=== PATIENT | male | born 1970 | race Caucasian/White ===

== ENCOUNTER 2016-10-20 21:26 | Emergency (ER) | payer BC ==
[~2016-10-20] VITALS: Ht 177.8 cm; Wt 88.5 kg
[~2016-10-20 21:26] MED LIST: AMIT10TA PO; AMOX1TAB11 PO; ATOR40TA59 PO; CHOL2000 PO; CYCL10TA2 PO; HYDR-2762 PO; IBUP-1060 PO; LISI10TA2 PO; METO10TA81 PO; ONDA4TAB7 PO; OXYC10TA PO; PANT40TA5 PO; SUCR1TAB29 PO; SUMA25TA3 PO; TRYP500C PO; UBID1CAP23 PO
[2016-10-20] MEDS ORDERED: NITROGLYCERIN SUBLINGUAL 0.4 MG BOTTLE OF 25. SL PRN (21:45)
[2016-10-20 21:56] LABS: BASO # 0.1 x10^3/uL (0.0-0.2); BASO % 1 % (0-3); EOS % 2 % (0-3); HEMATOCRIT 47.7 % (39.0-53.0); HEMOGLOBIN 16.1 g/dL (13.0-17.5); LYMPH # 3.8 x10^3/uL (1.0-4.8); LYMPH % 40 % (24-48); MEAN CORPUSCULAR HEMOGLOBIN 31 pg (25-35); MEAN CORPUSCULAR HGB CONC 34 g/dL (31-37); MEAN CORPUSCULAR VOLUME 92 fL (79-100); MONO % 9 % (0-9); NEUT % 48 % (31-73); PLATELET COUNT 355 x10^3/uL (140-400); RED BLOOD COUNT 5.18 x10^6/uL (4.30-5.70); RED CELL DISTRIBUTION WIDTH 13.6 % (11.5-14.5); WHITE BLOOD COUNT 9.5 x10^3/uL (4.0-11.0)
[2016-10-20] MEDS ORDERED: ASPIRIN 81 MG TAB.CHEW PO ONE (22:00)
[2016-10-20 22:07] LABS: CALCIUM 9.4 mg/dL (8.5-10.1); CREATININE 0.8 mg/dL (0.7-1.3); GFR 103.2; POTASSIUM 4.2 mmol/L (3.5-5.1)
[2016-10-20 22:15] LABS: ALBUMIN 3.6 g/dL (3.4-5.0); DIRECT BILIRUBIN 0.1 mg/dL (0.0-0.2); TOTAL BILIRUBIN 0.3 mg/dL (0.2-1.0); TOTAL PROTEIN 7.7 g/dL (6.4-8.2)
[2016-10-20] MEDS: MORPHINE SULFATE 2 MG/ML DISP.SYRIN. IV PRN (22:15)
[2016-10-21 01:31] VITALS: BP 125/78
[2016-10-21] MEDS: MORPHINE SULFATE 2 MG/ML DISP.SYRIN. IV PRN (01:42)
[2016-10-21] MEDS ORDERED: ASPI81TA2 PO (02:01)
--- NOTE | 2016-10-21 02:02 | PHYS DOC ---
Past Medical History Past Medical History: Other Additional Past Medical Histor: chronic headaches; cyclic vomiting syndrome Past Surgical History: Other Additional Past Surgical Histo: colostomy and colostomy reversal Alcohol Use: Rarely Drug Use: Marijuana, Opiates Adult General Chief Complaint Chief Complaint: CHEST WALL PAIN HPI HPI 46-year-old male presenting to the emergency department today with chest pain that he describes as sharp stabbing on the right side radiates to the right shoulder. Worse with deep inspiration. He denies hemoptysis unilateral leg swelling family or personal history of blood clotting disorders. He does report using a alicia the day prior that was significantly vibrating his upper extremity and thinks this may have been the culprit to his symptoms. He currently takes a statin for hyperlipidemia and a low-dose blood pressure medication. History of smoking present. Review of systems is negative for abdominal pain nausea vomiting diaphoresis. All other review of systems is negative unless otherwise noted in history of present illness. Review of Systems Review of Systems SEE ABOVE. Current Medications Current Medications Current Medications Medications (Trade) Dose Ordered Sig/Alejandra Start Time Stop Time Status Last Admin Dose Admin Aspirin (Children'S Aspirin) 324 mg 1X ONCE 10/20/16 22:00 10/20/16 22:01 DC 10/20/16 22:14 324 MG Morphine Sulfate 2 mg PRN Q1HR PRN 10/20/16 21:45 10/21/16 02:16 DC 10/21/16 01:42 2 MG Nitroglycerin (Nitrostat) 0.4 mg PRN Q5MIN PRN 10/20/16 21:45 10/21/16 02:16 DC 10/20/16 22:14 0.4 MG Allergies Allergies Allergies Coded Allergies Type Severity Reaction Last Updated Verified aspirin Allergy Mild irritates stomach 12/26/15 Yes Physical Exam Physical Exam Constitutional: Well developed, well nourished, no acute distress, non-toxic appearance. HENT: Normocephalic, atraumatic, bilateral external ears normal, oropharynx moist, no oral exudates, nose normal. [] Eyes: PERRLA, EOMI, conjunctiva normal, no discharge. Neck: Normal range of motion, no tenderness, supple, no stridor. [] Cardiovascular:Heart rate regular rhythm, no murmur Lungs & Thorax: Bilateral breath sounds clear to auscultation [] Abdomen: Bowel sounds normal, soft, no tenderness, no masses, no pulsatile masses. Skin: Warm, dry, no erythema, no rash. [] Back: No tenderness, no CVA tenderness. Extremities: No tenderness, no cyanosis, no clubbing, ROM intact, no edema. [] Neurologic: Alert and oriented X 3, normal motor function, normal sensory function, no focal deficits noted. Psychologic: Affect normal, judgement normal, mood normal. [] Current Patient Data Vital Signs Vital Signs Date Time Temp Pulse Resp B/P Pulse Ox O2 Delivery O2 Flow Rate FiO2 10/21/16 01:42 16 Room Air 10/21/16 01:31 88 125/78 94 10/20/16 21:38 98.5 98.5 Lab Values Laboratory Tests Test 10/20/16 21:45 White Blood Count 9.5x10^3/uL (4.0-11.0) Red Blood Count 5.18x10^6/uL (4.30-5.70) Hemoglobin 16.1g/dL (13.0-17.5) Hematocrit 47.7% (39.0-53.0) Mean Corpuscular Volume 92fL (79-100) Mean Corpuscular Hemoglobin 31pg (25-35) Mean Corpuscular Hemoglobin Concent 34g/dL (31-37) Red Cell Distribution Width 13.6% (11.5-14.5) Platelet Count 355x10^3/uL (140-400) Neutrophils (%) (Auto) 48% (31-73) Lymphocytes (%) (Auto) 40% (24-48) Monocytes (%) (Auto) 9% (0-9) Eosinophils (%) (Auto) 2% (0-3) Basophils (%) (Auto) 1% (0-3) Neutrophils # (Auto) 4.6x10^3uL (1.8-7.7) Lymphocytes # (Auto) 3.8x10^3/uL (1.0-4.8) Monocytes # (Auto) 0.9x10^3/uL (0.0-1.1) Eosinophils # (Auto) 0.1x10^3/uL (0.0-0.7) Basophils # (Auto) 0.1x10^3/uL (0.0-0.2) Sodium Level 142mmol/L (136-145) Potassium Level 4.2mmol/L (3.5-5.1) Chloride Level 105mmol/L (98-107) Carbon Dioxide Level 27mmol/L (21-32) Anion Gap 10 (6-14) Blood Urea Nitrogen 20mg/dL (8-26) Creatinine 0.8mg/dL (0.7-1.3) Estimated GFR (Cockcroft-Gault) 103.2 Glucose Level 113mg/dL (70-99) H Calcium Level 9.4mg/dL (8.5-10.1) Total Bilirubin 0.3mg/dL (0.2-1.0) Direct Bilirubin 0.1mg/dL (0.0-0.2) Aspartate Amino Transferase (AST) 32U/L (15-37) Alanine Aminotransferase (ALT) 47U/L (16-63) Alkaline Phosphatase 82U/L (46-116) Troponin I Quantitative < 0.017ng/mL (0.000-0.055) EO-Eam-O-Type Natriuretic Peptide 10pg/mL (0-124) Total Protein 7.7g/dL (6.4-8.2) Albumin 3.6g/dL (3.4-5.0) Lipase 128U/L (73-393) Laboratory Tests 10/20/16 21:45 Laboratory Tests 10/20/16 21:45 EKG EKG [] EKG shows sinus tachycardia. Otherwise axis and intervals are within normal limits. ST segments congruent. Not suggestive of ischemia Radiology/Procedures Radiology/Procedures []Chest x-ray reviewed by myself shows no obvious infiltrate or pneumothorax present. No obvious acute cardiopulmonary process present. Course & Med Decision Making Course & Med Decision Making Pertinent Labs and Imaging studies reviewed. (See chart for details) [] 38-year-old gentleman presenting the emergency department today with chest pain. Vital signs showed mild tachycardia otherwise unremarkable. Physical exam unremarkable. EKG unremarkable. Chest x-ray unremarkable. Blood work obtained which was unremarkable including a negative troponin. Repeat istat troponin taken at 1:30 AM which was negative. Heart score of 3 for >3 risk factors. Dragon Disclaimer Dragon Disclaimer This electronic medical record was generated, in whole or in part, using a voice recognition dictation system. Departure Departure Impression: Primary Impression: Chest pain Disposition: 01 HOME, SELF-CARE Condition: STABLE Referrals: Caity NOE MD (PCP) Patient Instructions: Chest Pain (Nonspecific) Additional Instructions: Thank you for allowing us to participate in your care today. Followup with your primary care physician in 3 days if your symptoms do not improve. If you do not have a primary care provider you can ask for a list of our primary care providers. Return to the emergency department you have any new or concerning findings. This should be evaluated by the primary care physician and any necessary consulting services for continued management within a few days after discharge. Return to emergency room if you have any new or concerning symptoms including but not limited to fever, chills, nausea, vomiting, intractable pain, any new rashes, chest pain, shortness of air, uncontrolled bleeding, difficulty breathing, and/or vision loss. You may have been prescribed medication that can change in your level of thinking and ability to operate machinery. These medications include hydrocodone and Ativan. Also, Benadryl has been known to do this as well. Be sure to check with your pharmacist and ask if the medications you've prescribed can affect your level of consciousness. I recommend not operating heavy machinery or driving while on medication such as these. Scripts Aspirin 81 Mg Tab.chew1 Tab PO DAILY #14 TAB Ref 3 Prov:MERCEDEZ TORRES MD 10/21/16 MERCEDEZ TORRES MD Oct 21, 2016 02:02
--- NOTE | 2016-10-21 02:15 | RAD ---
INDICATION: Chest pain. COMPARISON: 07/07/2016 FINDINGS: 1 view of chest obtained. Minimal haziness right lung base Mediastinal contour unremarkable. No gross osseous destructive lesion. IMPRESSION: Minimal haziness right lung base. Could be overlap of structures but a small focus of atelectasis or infiltrate is not excluded. Electronically signed by: Kris Anthony (Oct 21, 2016 02:14:28)
--- NOTE | 2016-10-21 09:22 | EKG ---
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
== END 2016-10-21 02:11 | disposition home or self-care (01) ==
LOC: ER 21:26
DX: R07.89 Other chest pain (principal); R00.0 Tachycardia, unspecified; E78.5 Hyperlipidemia, unspecified; G43.A0 Cyclical vomiting, in migraine, not intractable; G89.29 Other chronic pain; F12.10 Cannabis abuse, uncomplicated; F11.10 Opioid abuse, uncomplicated; Z88.6 Allergy status to analgesic agent; Z87.891 Personal history of nicotine dependence
CPT/HCPCS: 36415; 71010; 80048; 80076; 83690; 83880; 84484; 85027; 93005; 96374; 96376; 99285; J2270

== ENCOUNTER 2016-12-02 14:59 | Emergency (ER) | payer BC ==
[~2016-12-02] VITALS: Ht 175.3 cm; Wt 90.7 kg
[~2016-12-02 14:59] MED LIST changes: +ASPI81TA2 PO
--- NOTE | 2016-12-02 15:33 | PHYS DOC ---
Past Medical History Past Medical History: Diverticulitis, Other Additional Past Medical Histor: chronic headaches; cyclic vomiting syndrome Past Surgical History: Other Additional Past Surgical Histo: colostomy and colostomy reversal Additional Information: 11/02 ppd Alcohol Use: None Drug Use: Marijuana, Opiates Adult General Chief Complaint Chief Complaint: SORE THROAT HPI HPI Patient is a 46 year old male presents emergency department stating that he's had a headache right ear pain sore throat and chest congestion 2 days. Patient states that he's been taken NyQuil [id number] without much relief. He denies any fever, chills or any nausea vomiting. He does however state that he' s had some cough and congestion in which she feels as though he is short of air. He has used to inhalers at home of his 's which seemed to have helped for a brief moment. Review of Systems Review of Systems Constitutional: Denies fever or chills [] Eyes: Denies change in visual acuity, redness, or eye pain [] HENT: nasal congestion and sore throat [] Respiratory: cough occasional shortness of breath [] Cardiovascular: No additional information not addressed in HPI [] GI: Denies abdominal pain, nausea, vomiting, bloody stools or diarrhea [] : Denies dysuria or hematuria [] Musculoskeletal: Denies back pain or joint pain [] Integument: Denies rash or skin lesions [] Neurologic: Denies headache, focal weakness or sensory changes [] Current Medications Current Medications Current Medications Medications (Trade) Dose Ordered Sig/[facility] Start Time Stop Time Status Last Admin Dose Admin Albuterol/ Ipratropium (Duoneb) 3 ml 1X ONCE 12/02/16 15:45 12/02/16 15:46 DC 12/02/16 15:54 3 ML Ketorolac Tromethamine (Toradol Im) 60 mg 1X ONCE 12/02/16 16:15 12/02/16 16:16 DC 12/02/16 16:16 60 MG Allergies Allergies Allergies Coded Allergies Type Severity Reaction Last Updated Verified aspirin Allergy Mild irritates stomach 12/26/15 Yes Physical Exam Physical Exam Constitutional: Well developed, well nourished, no acute distress, non-toxic appearance. [] HENT: Normocephalic, atraumatic, bilateral external ears normal, oropharynx moist, no oral exudates, nose normal. Bilateral tympanic membranes appear to be normal. Throat with erythematous and postnasal drip noted. Patient with left cervical anterior adenopathy noted. Eyes: PERRLA, EOMI, conjunctiva normal, no discharge. [] Neck: Normal range of motion, no tenderness, supple, no stridor. [] Cardiovascular:Heart rate regular rhythm, no murmur [] Lungs & Thorax: Bilateral breath sounds clear to auscultation [] Skin: Warm, dry, no erythema, no rash. [] Back: No tenderness Extremities: No tenderness, no cyanosis, no clubbing, ROM intact, no edema. [] Neurologic: Alert and oriented X 3, normal motor function, normal sensory function, no focal deficits noted. [] Psychologic: Affect normal, judgement normal, mood normal. [] Current Patient Data Vital Signs Vital Signs Date Time Temp Pulse Resp B/P Pulse Ox O2 Delivery O2 Flow Rate FiO2 12/02/16 15:54 Room Air 12/02/16 15:11 100.0 109 20 135/106 97 100.0 Lab Values Laboratory Tests Test 12/02/16 15:52 Influenza Type A Antigen Negative (NEGATIVE) Influenza Type B Antigen Negative (NEGATIVE) EKG EKG [] Radiology/Procedures Radiology/Procedures [] Course & Med Decision Making Course & Med Decision Making Pertinent Labs and Imaging studies reviewed. (See chart for details) Rapid strep negative, influenza A and B. Patient will be placed on Augmentin for upper respiratory infection/sinusitis. Patient will be provided with a inhaler pro-air for bronchitis. Patient still states he is having pain in the Toradol did not help with his relief. He'll be provided with oxycodone wants his ride arrives here in the emergency department. Patient provided with discharge instructions treatment regimens and follow-up recommendations. Signs symptoms to return back to emergency department as been provided. [] Dragon Disclaimer Dragon Disclaimer This electronic medical record was generated, in whole or in part, using a voice recognition dictation system. Departure Departure Impression: Primary Impression: Sinusitis Additional Impression: Bronchitis Disposition: 01 HOME, SELF-CARE Condition: STABLE Referrals: YASMEEN NOE MD (PCP) Patient Instructions: Acute Bronchitis, [id number], Sinusitis, [id number] Additional Instructions: Home to rest Medication as prescribed Germainicidin HBP yasemin also help with nasal congestion Warm salt water gargles may help sooth the throat Cough drops, throat lozenger, cepacol throat spray may also help with throat discomfort Drink plenty of fluids. Followup with primary care provider in 3-5 days Return to emergency department as needed for signs and symptoms that become worse. Scripts Albuterol Sulfate (Proair Hfa Inhaler)8.5 Gm Hfa.aer.ad1 Puff INH PRN Q6HRS PRN SHORTNESS OF BREATH #1 INHALER Prov:SULY DAWN APRN 12/02/16 Amoxicillin/Potassium Clav (Augmentin 875-125 Tablet)1 Each Tablet1 Tab PO BID # 20 TAB Prov:SULY DAWN APRN 12/02/16 Problem Qualifiers SULY DAWN APRN Dec 02, 2016 15:32
[2016-12-02] MEDS ORDERED: IPRATRPIUM/ALBUTEROL 0.5/2.5MG 3 ML NEBU. NEB ONE (15:45)
[2016-12-02] MEDS ORDERED: KETOROLAC TROMETHAMINE 60 MG/2 ML INJ. IM ONE (16:15)
[2016-12-02 16:18] LABS: OBC FLU VALID
[2016-12-02] MEDS ORDERED: AMOX1TAB61 PO (16:50)
[2016-12-02] MEDS ORDERED: PROAIR HFA8.5 GM INH (16:50)
[2016-12-02 17:16] VITALS: BP 146/83
[2016-12-02] MEDS ORDERED: OXYCODONE/APAP 5/325 TABLET. PO ONE (17:30)
[2016-12-03 07:38] LABS: NEGATIVE OBC STREP NEG; POSITIVE OBC STREP POS
== END 2016-12-02 17:17 | disposition home or self-care (01) ==
LOC: ER 14:59
DX: J32.9 Chronic sinusitis, unspecified (principal); J40 Bronchitis, not specified as acute or chronic; F12.10 Cannabis abuse, uncomplicated; F11.10 Opioid abuse, uncomplicated; F17.200 Nicotine dependence, unspecified, uncomplicated; Z88.6 Allergy status to analgesic agent
CPT/HCPCS: 87070; 87804; 87880; 94640; 99284; J1885; J7620

== ENCOUNTER → 2017-01-16 | Outpatient (CLI) | payer BC ==
[~2017-01-16] MED LIST changes: +AMOX1TAB61 PO; +PROAIR HFA8.5 GM INH
--- NOTE | 2017-01-16 15:48 | KCIC ---
PROCEDURE Three-view left knee radiographs 01/16/2017 HISTORY Left knee pain with remote injury. FINDINGS AP, lateral and oblique digital radiographs of the left knee were obtained. No fracture or dislocation of the left knee is seen. Very mild degenerative changes are seen involving the medial compartment of the left knee. There is suggestion of chondrocalcinosis involving medial and lateral compartment. There is no radiographic evidence of a joint effusion. IMPRESSION Very mild degenerative changes are seen involving the medial compartment of the left knee. No acute osseous abnormality is seen. Electronically signed by: Carlos A De La Vega MD (January 16, 2017 15:47:02)
== END | disposition home or self-care (01) ==
LOC: KCIC 14:24
PROVIDERS: ATTEND Family Medicine
DX: M25.562 Pain in left knee (principal)
CPT/HCPCS: 73562

== ENCOUNTER 2017-04-08 00:54 | Emergency (ER) | payer BC ==
[~2017-04-08] VITALS: Ht 172.7 cm; Wt 86.2 kg
[~2017-04-08 00:54] MED LIST changes: +ASPI-630 PO; -ASPI81TA2 PO; -SUCR1TAB29 PO; +SUCR1TAB35 PO; -UBID1CAP23 PO; +UBID1CAP41 PO
[2017-04-08] MEDS ORDERED: EYE-STREAM OPHTH SOLUTION 120 ML BOTTLE. ONE (02:10)
[2017-04-08] MEDS ORDERED: TETRACAINE 0.5% OPHTH SOLUTION 4ML BOTTLE. ONE (02:10)
[2017-04-08] MEDS ORDERED: FLUORESCEIN OPHTH TEST STRIP. ONE (02:10)
[2017-04-08 02:12] VITALS: BP 125/90
[2017-04-08] MEDS ORDERED: TETRACAINE 0.5% OPHTH SOLUTION 4ML BOTTLE. OS ONE (02:30)
[2017-04-08] MEDS ORDERED: oxyCODONE/APAP 7.5/325 1 TAB TABLET PO ONE (02:30)
[2017-04-08] MEDS ORDERED: FLUORESCEIN OPHTH TEST STRIP. OS ONE (02:30)
[2017-04-08] MEDS ORDERED: ERYT1OIN6 OP (02:54)
[2017-04-08] MEDS ORDERED: ERYTHROMYCIN 0.5% OPHTH OINTMENT 1GM TUBE. OS ONE (03:00)
--- NOTE | 2017-04-08 07:42 | ED.ADGEN ---
Past Medical History Past Medical History: Diverticulitis, Other Additional Past Medical Histor: chronic headaches; cyclic vomiting syndrome Past Surgical History: Other Additional Past Surgical Histo: colostomy and colostomy reversal Alcohol Use: None Drug Use: Marijuana, Opiates Adult General Chief Complaint Chief Complaint: FOREIGN BODY/EYES HPI HPI Patient is a 47 year old man, who presents to the emergency department with complaint of left eye pain for the past several hours. Patient states that he was using a metal grinder, did have safety glasses on, but a piece of metal or patent flu up and struck him in the left eye. He states that he could feel a foreign body sensation under his upper eyelid, and has persistent pain in the left eye along with a headache. He does use opiates for chronic pain at home, states he did take his pain medication without relief at home. No vision changes, no fevers or chills, no nausea or vomiting, no other injuries reported. Patient and his did irrigate the eye copiously using saline and Visine drops prior to coming to the ED. Patient uses reading glasses, does not use contacts. Tetanus is up-to-date. Review of Systems Review of Systems Constitutional: Denies fever or chills. [] Eyes: Left eye pain and foreign body sensation. Denies change in visual acuity. [] HENT: Denies nasal congestion or sore throat. [] Respiratory: Denies cough or shortness of breath. [] Cardiovascular: Denies chest pain or edema. [] GI: Denies abdominal pain, nausea, vomiting, bloody stools or diarrhea. [] : Denies dysuria. [] Musculoskeletal: Denies back pain or joint pain. [] Integument: Denies rash. [] Neurologic: Denies headache, focal weakness or sensory changes. [] Endocrine: Denies polyuria or polydipsia. [] Lymphatic: Denies swollen glands. [] Psychiatric: Denies depression or anxiety. [] Current Medications Current Medications Current Medications Medications (Trade) Dose Ordered Sig/Alejandra Start Time Stop Time Status Last Admin Dose Admin Balanced Salt Solution (Eye-Stream) 120 ml STK-MED ONCE 04/08/17 02:10 04/08/17 02:11 DC Erythromycin (Romycin) 0.25 inch 1X ONCE 04/08/17 03:00 04/08/17 03:01 DC 04/08/17 02:55 0.25 INCH Fluorescein Sodium (Ful-Dianna) 1 strip 1X ONCE 04/08/17 02:30 04/08/17 02:31 DC 04/08/17 02:36 1 STRIP Oxycodone/ Acetaminophen (Percocet 7.5/ 325) 1 tab 1X ONCE 04/08/17 02:30 04/08/17 02:31 DC 04/08/17 02:35 1 TAB Tetracaine HCl (Tetracaine) 1 drop 1X ONCE 04/08/17 02:30 04/08/17 02:31 DC 04/08/17 02:36 1 DROP Allergies Allergies Allergies Coded Allergies Type Severity Reaction Last Updated Verified aspirin Allergy Mild irritates stomach 12/26/15 Yes Physical Exam Physical Exam Constitutional: Well developed, well nourished, no acute distress, non-toxic appearance. [] HENT: Normocephalic, atraumatic, bilateral external ears normal, oropharynx moist, no oral exudates, nose normal. [] Eyes: PERRLA, EOMI, conjunctiva are mildly injected, pleurisy and examination performed, patient noted to have a small corneal abrasion in the 12 o'clock position, no foreign bodies identified, patient also noted to have some irritation of the inner aspect of the upper eyelid, no discharge. [] Skin: Warm, dry, no erythema, no rash. [] Back: No tenderness, no CVA tenderness. [] Extremities: No tenderness, no cyanosis, no clubbing, ROM intact, no edema. [] Neurologic: Alert and oriented X 3, normal motor function, normal sensory function, no focal deficits noted. [] Psychologic: Affect normal, judgement normal, mood normal. [] Current Patient Data Vital Signs Vital Signs Date Time Temp Pulse Resp B/P (MAP) Pulse Ox O2 Delivery O2 Flow Rate FiO2 04/08/17 02:35 99 Room Air 04/08/17 02:12 97.8 91 20 125/90 (102) 97.8 EKG EKG Not indicated. [] Radiology/Procedures Radiology/Procedures Not indicated. [] Course & Med Decision Making Course & Med Decision Making Pertinent Labs and Imaging studies reviewed. (See chart for details) Patient with significant improvement of discomfort after application of tetracaine in the ED, fluorescein reveals small amount of uptake at at the 12 o' clock position, and irritation of the inner eyelid, but no retained foreign body identified. Discussion at bedside regarding importance of follow-up with his eye doctor in the next 24-48 hours, which patient states he'll be able able to establish without issue, patient was instructed on use of tetracaine drops, and also of erythromycin ointment, medication precautions and instructions and importance of proper use discussed in detail with patient, regarding potential side effects and risks of misuse of tetracaine. Patient voices understanding and agreement, given clear and detailed follow-up and return instructions, discharged home in stable condition, comfortable, with drops and instructions as stated, azithromycin applied in the ED without issue, given contact information for Dr. Serrato of ophthalmology in case he is unable to follow- up with his own eye doctor. Robert Disclaimer Dragon Disclaimer This electronic medical record was generated, in whole or in part, using a voice recognition dictation system. Departure Impression: Primary Impression: Corneal abrasion Additional Impression: Eye pain Disposition: 01 HOME, SELF-CARE Condition: IMPROVED Scripts Erythromycin Base (Erythromycin) 1 Gm Oint...g. 0.25 INCH OP QID, #1 TUBE Prov: MELINDA MELCHOR DO 04/08/17 Problem Qualifiers MELINDA MELCHOR DO Apr 08, 2017 07:41
== END 2017-04-08 03:02 | disposition home or self-care (01) ==
LOC: ER 00:54
DX: S05.02XA Injury of conjunctiva and corneal abrasion without foreign body, left eye, initial encounter (principal); F12.10 Cannabis abuse, uncomplicated; F11.10 Opioid abuse, uncomplicated; G89.29 Other chronic pain; Z88.6 Allergy status to analgesic agent; W22.8XXA Striking against or struck by other objects, initial encounter; Y93.89 Activity, other specified; Y99.8 Other external cause status; Y92.89 Other specified places as the place of occurrence of the external cause
CPT/HCPCS: 99283

== ENCOUNTER 2017-05-19 02:41 | Inpatient (IN) | payer BC ==
[~2017-05-19] VITALS: Ht 175.3 cm; Wt 84.2 kg
[~2017-05-19 02:41] MED LIST changes: +ERYT1OIN6 OP
[2017-05-19] MEDS ORDERED: ONDANSETRON PF 4 MG/2 ML VIAL. IV ONE (03:00)
[2017-05-19] MEDS ORDERED: IV NORMAL SALINE 1000ML BAG 1,000 ML IV ONE (03:00)
[2017-05-19 03:03] LABS: BASO # 0.1 x10^3/uL (0.0-0.2); BASO % 1 % (0-3); EOS % 0 % (0-3); HEMATOCRIT 46.6 % (39.0-53.0); HEMOGLOBIN 15.8 g/dL (13.0-17.5); LYMPH # 2.7 x10^3/uL (1.0-4.8); LYMPH % 18 % (24-48); MEAN CORPUSCULAR HEMOGLOBIN 31 pg (25-35); MEAN CORPUSCULAR HGB CONC 34 g/dL (31-37); MEAN CORPUSCULAR VOLUME 92 fL (79-100); MONO % 4 % (0-9); NEUT % 77 % (31-73); PLATELET COUNT 362 x10^3/uL (140-400); RED BLOOD COUNT 5.09 x10^6/uL (4.30-5.70); RED CELL DISTRIBUTION WIDTH 14.1 % (11.5-14.5); WHITE BLOOD COUNT 14.7 x10^3/uL (4.0-11.0)
[2017-05-19 03:11] LABS: GFR 79.4; POTASSIUM 3.8 mmol/L (3.5-5.1)
[2017-05-19 03:17] LABS: ALBUMIN 4.1 g/dL (3.4-5.0); TOTAL BILIRUBIN 0.4 mg/dL (0.2-1.0); TOTAL PROTEIN 8.3 g/dL (6.4-8.2)
[2017-05-19] MEDS ORDERED: HYDROmorphone 2 MG/ML VIAL IV ONE (04:00)
[2017-05-19] MEDS ORDERED: diphenhydrAMINE 50 MG/ML VIAL IVP ONE (04:00)
[2017-05-19] MEDS ORDERED: METOCLOPRAMIDE HCL 10 MG/2 ML VIAL. IV ONE (04:00)
--- NOTE | 2017-05-19 04:13 | PHYS DOC ---
Past Medical History Past Medical History: Diverticulitis, Other Additional Past Medical Histor: chronic headaches; cyclic vomiting syndrome Past Surgical History: Other Additional Past Surgical Histo: colostomy and colostomy reversal Smoking: Cigarettes Alcohol Use: None Drug Use: Marijuana, Opiates Social History Narrative: Adult General Chief Complaint Chief Complaint: NAUSEA/VOMITING/DIARRHA HPI HPI Patient is a 47 year old male who presents with vomiting. He has chronic cyclic vomiting syndrome and presents with complaint of intractable vomiting. He states "just call Dr Mathieu Noe and he will admit me." He has chronic headaches (MRI Brain neg 08/[address] head neg 08/2014) with a headache for days. He has no diarrhea; some abdominal pain but very vague. No fever, no cough , no travel. No one else sick at home. Ate at [employer]. This episode of vomiting started at 2200 PM. He was on antibiotic eye drops couple weeks ago; no oral antibiotics. PCP: Dr Mathieu Noe Review of Systems Review of Systems Constitutional: Denies fever or chills Eyes: Denies change in visual acuity, redness, or eye pain; recent eye infection -cleared HENT: Denies nasal congestion or sore throat Respiratory: Denies cough or shortness of breath Cardiovascular: No chest pain GI: POS abdominal pain, nausea, vomiting, NO bloody stools or diarrhea : Denies dysuria or hematuria Musculoskeletal: Denies back pain or joint pain Integument: Denies rash or skin lesions Neurologic: Daily headaches, NO focal weakness or sensory changes Current Medications Current Medications Current Medications Medications (Trade) Dose Ordered Sig/Alejandra Start Time Stop Time Status Last Admin Dose Admin Diphenhydramine HCl (Benadryl) 25 mg 1X ONCE 05/19/17 04:00 05/19/17 04:01 DC Hydromorphone HCl (Dilaudid) 1 mg 1X ONCE 05/19/17 04:00 05/19/17 04:01 DC Metoclopramide HCl (Reglan) 10 mg 1X ONCE 05/19/17 04:00 05/19/17 04:01 DC Ondansetron HCl (Zofran) 4 mg 1X ONCE 05/19/17 03:00 05/19/17 03:01 DC 05/19/17 03:00 4 MG Sodium Chloride 1,000 ml @ 1,000 mls/hr 1X ONCE 05/19/17 03:00 05/19/17 03:59 DC 05/19/17 03:00 1,000 MLS/HR Allergies Allergies Allergies Coded Allergies Type Severity Reaction Last Updated Verified aspirin Allergy Mild irritates stomach 12/26/15 Yes Physical Exam Physical Exam Constitutional: Well developed, well nourished, no acute distress, non-toxic appearance. HENT: Normocephalic, atraumatic, bilateral external ears normal, oropharynx moist, no oral exudates, nose normal. Eyes: PERRLA, EOMI, conjunctiva normal, no discharge. Neck: Normal range of motion, no tenderness, supple, no stridor. Cardiovascular:Heart rate regular rhythm, no murmur Lungs & Thorax: Bilateral breath sounds clear to auscultation Abdomen: Bowel sounds normal, soft, no tenderness on palpation; no rebound or guarding, no masses, no pulsatile masses. Skin: Warm, dry, no erythema, no rash. Back: No tenderness, no CVA tenderness. Extremities: No tenderness, no cyanosis, no clubbing, ROM intact, no edema. Neurologic: Alert and oriented X 3, normal motor function, normal sensory function, no focal deficits noted. Current Patient Data Vital Signs Vital Signs Date Time Temp Pulse Resp B/P (MAP) Pulse Ox O2 Delivery O2 Flow Rate FiO2 05/19/17 02:45 97.6 62 26 144/91 (108) 97 Room Air 97.6 Lab Values Laboratory Tests Test 05/19/17 02:55 White Blood Count 14.7 x10^3/uL (4.0-11.0) H Red Blood Count 5.09 x10^6/uL (4.30-5.70) Hemoglobin 15.8 g/dL (13.0-17.5) Hematocrit 46.6 % (39.0-53.0) Mean Corpuscular Volume 92 fL (79-100) Mean Corpuscular Hemoglobin 31 pg (25-35) Mean Corpuscular Hemoglobin Concent 34 g/dL (31-37) Red Cell Distribution Width 14.1 % (11.5-14.5) Platelet Count 362 x10^3/uL (140-400) Neutrophils (%) (Auto) 77 % (31-73) H Lymphocytes (%) (Auto) 18 % (24-48) L Monocytes (%) (Auto) 4 % (0-9) Eosinophils (%) (Auto) 0 % (0-3) Basophils (%) (Auto) 1 % (0-3) Neutrophils # (Auto) 11.3 x10^3uL (1.8-7.7) H Lymphocytes # (Auto) 2.7 x10^3/uL (1.0-4.8) Monocytes # (Auto) 0.6 x10^3/uL (0.0-1.1) Eosinophils # (Auto) 0.0 x10^3/uL (0.0-0.7) Basophils # (Auto) 0.1 x10^3/uL (0.0-0.2) Sodium Level 140 mmol/L (136-145) Potassium Level 3.8 mmol/L (3.5-5.1) Chloride Level 102 mmol/L (98-107) Carbon Dioxide Level 27 mmol/L (21-32) Anion Gap 11 (6-14) Blood Urea Nitrogen 24 mg/dL (8-26) Creatinine 1.0 mg/dL (0.7-1.3) Estimated GFR (Cockcroft-Gault) 79.4 BUN/Creatinine Ratio 24 (6-20) H Glucose Level 142 mg/dL (70-99) H Calcium Level 10.0 mg/dL (8.5-10.1) Total Bilirubin 0.4 mg/dL (0.2-1.0) Aspartate Amino Transferase (AST) 22 U/L (15-37) Alanine Aminotransferase (ALT) 32 U/L (16-63) Alkaline Phosphatase 85 U/L (46-116) Total Protein 8.3 g/dL (6.4-8.2) H Albumin 4.1 g/dL (3.4-5.0) Albumin/Globulin Ratio 1.0 (1.0-1.7) Laboratory Tests 05/19/17 02:55 Laboratory Tests 05/19/17 02:55 Course & Med Decision Making Course & Med Decision Making Evaluated patient. His abdominal exam is benign and no evidence of acute surgical abdomen. He states he has had this many times in the past. His BUN is elevated. IV NS fluids, IV reglan, zofran, benadryl and dilaudid. He has improved. Spoke with Dr Gutierrez (supervisor telephone information) and accepts admission for Dr Noe. I have spoken with the patient and/or caregivers. I have explained the patient' s condition, diagnosis and treatment plan based on the information available to me at this time. I have answered the patient's and/or caregiver's questions and addressed any concerns. The patient and/or caregivers have as good an understanding of the patient's diagnosis, condition and treatment plan as can be expected at this point. The patient has been stabilized within the capability of the emergency department. The patient will be transported for further care and management or will be moved to an observation or inpatient service. I have communicated with the staff or medical practitioner taking over this patient's care. Dragon Disclaimer Dragon Disclaimer This electronic medical record was generated, in whole or in part, using a voice recognition dictation system. Departure Departure Impression: Primary Impression: Dehydration Additional Impressions: Intractable vomiting Cyclical vomiting Disposition: ADMITTED INPATIENT Admitting Physician: Adilson Noe Condition: STABLE Referrals: Caity NOE MD (PCP) Problem Qualifiers Additional Impressions: Intractable vomiting Vomiting type: cyclical vomiting Nausea presence: with nausea Qualified Codes: G43.A1 - Cyclical vomiting, intractable Cyclical vomiting Vomiting Intractability: intractable Nausea presence: with nausea Qualified Codes: G43.A1 - Cyclical vomiting, intractable RANDY SHEPPARD MD May 19, 2017 04:13
[2017-05-19] MEDS ORDERED: MORPHINE SULFATE 2 MG/ML DISP.SYRIN. IV PRN (04:15)
[2017-05-19 05:18] VITALS: BP 130/56
[2017-05-19] MEDS: diphenhydrAMINE 50 MG/ML VIAL IVP PRN ×2 (05:32→11:45)
[2017-05-19 07:00] VITALS: BP 126/93
[2017-05-19] MEDS: METOCLOPRAMIDE HCL 10 MG/2 ML VIAL. IV PRN ×2 (08:43→15:19)
[2017-05-19] MEDS ORDERED: NON FORMULARY ITEM (Albuterol Sulfate (Proair Hfa Inhaler) 1 PUFF) INH PRN (08:45)
[2017-05-19] MEDS ORDERED: OXYC10TA PO (08:46)
[2017-05-19] MEDS ORDERED: LINA145C PO (08:46)
--- NOTE | 2017-05-19 08:53 | PDOC ---
PROGRESS NOTES Subjective Subjective Patient c/o nausea and neck pain, requesting IV meds for this. Objective Objective Vital Signs Date Time Temp Pulse Resp B/P (MAP) Pulse Ox O2 Delivery O2 Flow Rate FiO2 05/19/17 08:44 99 Room Air 05/19/17 05:18 97.5 77 18 130/56 (80) 97.5 Physical Exam Abdomen: Normal bowel sounds, Soft, No tenderness Heart: Regular rate Extremities: No edema General: Alert, Oriented X3 (moderately uncomfortable with nausea at present, no emesis) Lungs: Clear to auscultation Assessment Assessment Problems Medical Problems: (1) Cyclical vomiting Status: Acute Plan Plan of Care 1. Cyclic vomiting - patient has long history of this. Mild dehydration present on admission lab. Will order Zofran and IVF, clears if desired. 2. degenerative disc disease and chronic headaches - appears stable, continue his usual po meds after nausea improves. Has IV Morphine available also. 3. HTN - continue Lisinopril. 4 tobaccoism - Nicotine patch while here. Comment Review of Relevant I have reviewed the following items magdalena (where applicable) has been applied. Labs Laboratory Tests Test 05/19/17 02:55 White Blood Count 14.7 x10^3/uL (4.0-11.0) Red Blood Count 5.09 x10^6/uL (4.30-5.70) Hemoglobin 15.8 g/dL (13.0-17.5) Hematocrit 46.6 % (39.0-53.0) Mean Corpuscular Volume 92 fL (79-100) Mean Corpuscular Hemoglobin 31 pg (25-35) Mean Corpuscular Hemoglobin Concent 34 g/dL (31-37) Red Cell Distribution Width 14.1 % (11.5-14.5) Platelet Count 362 x10^3/uL (140-400) Neutrophils (%) (Auto) 77 % (31-73) Lymphocytes (%) (Auto) 18 % (24-48) Monocytes (%) (Auto) 4 % (0-9) Eosinophils (%) (Auto) 0 % (0-3) Basophils (%) (Auto) 1 % (0-3) Neutrophils # (Auto) 11.3 x10^3uL (1.8-7.7) Lymphocytes # (Auto) 2.7 x10^3/uL (1.0-4.8) Monocytes # (Auto) 0.6 x10^3/uL (0.0-1.1) Eosinophils # (Auto) 0.0 x10^3/uL (0.0-0.7) Basophils # (Auto) 0.1 x10^3/uL (0.0-0.2) Sodium Level 140 mmol/L (136-145) Potassium Level 3.8 mmol/L (3.5-5.1) Chloride Level 102 mmol/L (98-107) Carbon Dioxide Level 27 mmol/L (21-32) Anion Gap 11 (6-14) Blood Urea Nitrogen 24 mg/dL (8-26) Creatinine 1.0 mg/dL (0.7-1.3) Estimated GFR (Cockcroft-Gault) 79.4 BUN/Creatinine Ratio 24 (6-20) Glucose Level 142 mg/dL (70-99) Calcium Level 10.0 mg/dL (8.5-10.1) Total Bilirubin 0.4 mg/dL (0.2-1.0) Aspartate Amino Transf (AST/SGOT) 22 U/L (15-37) Alanine Aminotransferase (ALT/SGPT) 32 U/L (16-63) Alkaline Phosphatase 85 U/L (46-116) Total Protein 8.3 g/dL (6.4-8.2) Albumin 4.1 g/dL (3.4-5.0) Albumin/Globulin Ratio 1.0 (1.0-1.7) Laboratory Tests Test 05/19/17 02:55 White Blood Count 14.7 x10^3/uL (4.0-11.0) Red Blood Count 5.09 x10^6/uL (4.30-5.70) Hemoglobin 15.8 g/dL (13.0-17.5) Hematocrit 46.6 % (39.0-53.0) Mean Corpuscular Volume 92 fL (79-100) Mean Corpuscular Hemoglobin 31 pg (25-35) Mean Corpuscular Hemoglobin Concent 34 g/dL (31-37) Red Cell Distribution Width 14.1 % (11.5-14.5) Platelet Count 362 x10^3/uL (140-400) Neutrophils (%) (Auto) 77 % (31-73) Lymphocytes (%) (Auto) 18 % (24-48) Monocytes (%) (Auto) 4 % (0-9) Eosinophils (%) (Auto) 0 % (0-3) Basophils (%) (Auto) 1 % (0-3) Neutrophils # (Auto) 11.3 x10^3uL (1.8-7.7) Lymphocytes # (Auto) 2.7 x10^3/uL (1.0-4.8) Monocytes # (Auto) 0.6 x10^3/uL (0.0-1.1) Eosinophils # (Auto) 0.0 x10^3/uL (0.0-0.7) Basophils # (Auto) 0.1 x10^3/uL (0.0-0.2) Sodium Level 140 mmol/L (136-145) Potassium Level 3.8 mmol/L (3.5-5.1) Chloride Level 102 mmol/L (98-107) Carbon Dioxide Level 27 mmol/L (21-32) Anion Gap 11 (6-14) Blood Urea Nitrogen 24 mg/dL (8-26) Creatinine 1.0 mg/dL (0.7-1.3) Estimated GFR (Cockcroft-Gault) 79.4 BUN/Creatinine Ratio 24 (6-20) Glucose Level 142 mg/dL (70-99) Calcium Level 10.0 mg/dL (8.5-10.1) Total Bilirubin 0.4 mg/dL (0.2-1.0) Aspartate Amino Transf (AST/SGOT) 22 U/L (15-37) Alanine Aminotransferase (ALT/SGPT) 32 U/L (16-63) Alkaline Phosphatase 85 U/L (46-116) Total Protein 8.3 g/dL (6.4-8.2) Albumin 4.1 g/dL (3.4-5.0) Albumin/Globulin Ratio 1.0 (1.0-1.7) Medications Current Medications Ondansetron HCl (Zofran) 4 mg 1X ONCE IV Last administered on 05/19/17 03:00 ; Start 05/19/17 at 03:00; Stop 05/19/17 at 03:01; Status DC Sodium Chloride 1,000 ml @ 1,000 mls/hr 1X ONCE IV Last administered on 03:00; Start 05/19/17 at 03:00; Stop 05/19/17 at 03:59; Status DC Hydromorphone HCl (Dilaudid) 1 mg 1X ONCE IV Last administered on 05/19/17 04 :25; Start 05/19/17 at 04:00; Stop 05/19/17 at 04:01; Status DC Metoclopramide HCl (Reglan) 10 mg 1X ONCE IV Last administered on 05/19/17 04 :25; Start 05/19/17 at 04:00; Stop 05/19/17 at 04:01; Status DC Diphenhydramine HCl (Benadryl) 25 mg 1X ONCE IVP Last administered on 04:25; Start 05/19/17 at 04:00; Stop 05/19/17 at 04:01; Status DC Morphine Sulfate 2 mg PRN Q2HR PRN IV SEVERE PAIN Last administered on 08:44; Start 05/19/17 at 04:15; Stop 05/20/17 at 04:14 Diphenhydramine HCl (Benadryl) 25 mg PRN Q4HRS PRN IVP NAUSEA Last administered on 05/19/17 05:32; Start 05/19/17 at 04:15 Metoclopramide HCl (Reglan) 10 mg PRN Q6HRS PRN IV NAUSEA Last administered on 05/19/17 08:43; Start 05/19/17 at 04:15 Ondansetron HCl (Zofran) 8 mg PRN Q8HRS PRN IV NAUSEA/VOMITING; Start 05/19/17 at 08:45 Morphine Sulfate 4 mg PRN Q2HR PRN IV PAIN; Start 05/19/17 at 08:45 Potassium Chloride/Dextrose/ Sod Cl 1,000 ml @ 100 mls/hr Q10H IV ; Start 05/19 at 08:45 Aspirin (Children'S Aspirin) 81 mg DAILY PO ; Start 05/19/17 at 09:00; Status UNV Atorvastatin Calcium (Lipitor) 40 mg DAILY PO ; Start 05/19/17 at 09:00; Status UNV Lisinopril (Prinivil) 10 mg DAILY PO ; Start 05/19/17 at 09:00; Status UNV Non-Formulary Medication 1 puff PRN Q6HRS PRN INH SHORTNESS OF BREATH; Start at 08:45; Status UNV Active Scripts Active Linzess (Linaclotide) 145 Mcg Capsule 145 Mcg PO DAILY 30 Days Oxycodone Hcl 10 Mg Tablet 1 Tab PO QID Proair Hfa Inhaler (Albuterol Sulfate) 8.5 Gm Hfa.aer.ad 1 Puff INH PRN Q6HRS PRN Aspirin 81 Mg Tab.chew 1 Tab PO DAILY L-Tryptophan (Tryptophan) 500 Mg Capsule 500 Mg PO DAILY Co Q-10 100 Mg Softgel (Ubidecarenone/Vit E Acetate) 1 Each Capsule 1 Each PO DAILY Zofran (Ondansetron Hcl) 4 Mg Tablet 1 Tab PO Q6HRS Reported Atorvastatin Calcium 40 Mg Tablet 1 Tab PO DAILY Lisinopril 10 Mg Tablet 1 Tab PO DAILY Vitals/I & O Vital Sign - Last 24 Hours 05/19/17 05/19/17 05/19/17 05/19/17 02:45 03:05 03:39 04:09 Temp 97.6 97.6 Pulse 62 83 80 104 Resp 26 16 16 B/P (MAP) 144/91 (108) 144/91 (108) 154/73 (100) 183/97 (125) Pulse Ox 97 100 99 O2 Delivery Room Air Room Air Room Air 05/19/17 05/19/17 05/19/17 05:18 06:10 08:44 Temp 97.5 97.5 Pulse 77 Resp 18 B/P (MAP) 130/56 (80) Pulse Ox 99 99 O2 Delivery Room Air Room Air Room Air MARI JEAN BAPTISTE MD May 19, 2017 08:53
[2017-05-19] MEDS ORDERED: ALBUTEROL SULFATE 2.5 MG/3 ML NEBU. NEB PRN (09:00)
[2017-05-19] MEDS: LINACLOTIDE 145 MCG CAPSULE. PO SCH (09:00)
[2017-05-19] MEDS: NICOTINE 21MG PATCH. TD SCH (09:00)
[2017-05-19] MEDS: LISINOPRIL 10 MG TABLET PO SCH (09:00)
[2017-05-19] MEDS: ASPIRIN CHEWABLE 81 MG TABLET. PO SCH (09:00)
--- NOTE | 2017-05-19 09:25 | HP ---
ADMIT DATE: 05/19/2017 CHIEF COMPLAINT: Vomiting. HISTORY OF PRESENT ILLNESS: The patient is a 47-year-old male with a history of chronic cyclic vomiting syndrome. He presented to the Emergency Room with the above complaint. He reports that his emesis had started on the evening prior to admission after eating at [employer]. When his symptoms persisted, he came to the Emergency Room. He has required hospitalization in the past for treatment of his vomiting. He denies any abdominal pain or diarrhea with his symptoms. When seen in the Emergency Room, he was found to be mildly dehydrated. He was given antiemetics and IV fluid and admitted for further care. PAST MEDICAL HISTORY: Cyclic vomiting syndrome, chronic headache, hyperlipidemia, chronic back and neck pain from degenerative disk disease, hypertension, kidney stone. PAST SURGICAL HISTORY: Colon resection in 2010 with colostomy and eventual takedown, left index finger surgery. ALLERGIES: THE PATIENT IS ALLERGIC TO ASPIRIN. HOME MEDICATIONS: Lisinopril 10 mg daily, atorvastatin 40 mg daily, Linzess 145 mcg daily, Zofran p.r.n., oxycodone 10 mg q.i.d. p.r.n. FAMILY HISTORY: Noncontributory. SOCIAL HISTORY: The patient is . He smokes cigarettes. There is no history of overuse of alcohol. REVIEW OF SYSTEMS: This is a little difficult to obtain due to patient's present discomfort. He has not reported fever or chills. He has not had a cough or shortness of breath. He has not had chest pain or palpitations. His chronic back and neck pain have been controlled with his usual medications. PHYSICAL EXAMINATION: GENERAL: The patient is alert and oriented x 3. He is resting in bed. He appears moderately uncomfortable due to nausea. He is not having any emesis at present. HEENT: PERRL, EOMI, sclerae clear. Oropharynx: Mucous membranes somewhat dry. NECK: Supple, without lymphadenopathy. CHEST: Clear to auscultation with normal respiratory effort. CARDIOVASCULAR: Regular rhythm without murmur. ABDOMEN: Soft, nontender, normoactive bowel sounds are present. EXTREMITIES: Without edema. ASSESSMENT AND PLAN: 1. Cyclic vomiting. The patient does have a long history of this. He has not required hospitalization since last August. Mild dehydration was present on his admission lab. We will resume IV fluids. The maximum dose of Zofran has been ordered. The patient can try clear liquids if desired after the administration of Zofran. 2. Degenerative disk disease and chronic headaches. This appears stable. Continue his usual oral pain medication after his nausea improved. IV morphine is also available. 3. Hypertension. Continue lisinopril. 4. Tobaccoism. The patient does not appear interested in smoking cessation. We will order a nicotine patch while he is hospitalized. MARI JEAN BAPTISTE MD DR: DESIREE/caryl JOB#: [id number] / [id number] ASHA
[2017-05-19] MEDS: POTASSIUM CL 20MEQ D5-0.45NACL 1,000 ML IV SCH ×2 (10:26→20:32)
[2017-05-19] MEDS: ONDANSETRON PF 4 MG/2 ML VIAL. IV PRN ×2 (10:27→18:28)
[2017-05-19 11:00] VITALS: BP 149/90
[2017-05-19] MEDS: MORPHINE SULFATE 4 MG/ML DISP.SYRIN. IV PRN ×5 (11:37→22:45)
[2017-05-19 15:00] VITALS: BP 147/89
[2017-05-19] MEDS: oxyCODONE IR 5 MG TABLET PO PRN ×2 (16:54→23:53)
[2017-05-19 19:43] VITALS: BP 90/52
[2017-05-19] MEDS ORDERED: ATORVASTATIN CALCIUM 40 MG TABLET. PO SCH (21:00)
[2017-05-19 23:53] VITALS: BP 114/76
[2017-05-20] MEDS: MORPHINE SULFATE 4 MG/ML DISP.SYRIN. IV PRN ×2 (03:36→08:58)
[2017-05-20 03:46] VITALS: BP 102/71
[2017-05-20 05:05] LABS: CALCIUM 8.4 mg/dL (8.5-10.1); CREATININE 0.8 mg/dL (0.7-1.3); GFR 102.7
[2017-05-20 07:12] VITALS: BP 115/81
--- NOTE | 2017-05-20 07:55 | ACF ---
Admit Criteria Forms Admit Criteria Forms Admit Criteria Forms VOMITING Clinical Indications for Admission to Inpatient Care ( Place 'X' for any and all applicable criteria): Admission is indicated for 1 or more of the following(1)(2)(3): [ ]I. Complete or partial gastrointestinal obstruction [ ]II. Vomiting due to significant metabolic derangement (eg, severe hypercalcemia, diabetic ketoacidosis) [ ]III. Other cause of vomiting requiring hospitalization (eg, poisoning, increased intracranial pressure) [X ]IV. Inpatient admission required rather than observation care because of 1 or more of the following [ ]i) Hemodynamic instability [X ]ii) Vomiting that is severe or persistent indicated by 1 or more of the following 1) Numerous episodes of vomiting in past 24hours (eg, every 1 to 2 hours) 2) Suggests severe underlying cause or complication (eg , projectile, feculent, bilious, coffee ground, bloody) 3) Appropriate antiemetic treatment (eg, repeated oral or parenteral dosing) does not sufficiently reduce vomiting within 12 to 24 hours of treatment X 4) Treatment regimen necessary to adequately control vomiting requires inpatient level of care (eg, not immediately available in outpatient setting) [ ]iii) Severe electrolyte abnormalities requiring inpatient care [ ]iv) Severe pain requiring acute inpatient management( Continuous or frequent (eg, every 2 to 4 hours) parental analgesics or analgesic regimen that can only be performed or initiated in inpatient setting) [ ]v) High fever or infection requiring inpatient admission as indicated by 1 or more of the following(7)(8): [ ]1) Appropriate outpatient or observation care antimicrobial treatment unavailable, not effective, or not feasible [ ]2) Documented bacteremia [ ]3) Temp >104.9 degrees F (40.5 degrees C) (oral) [ ]4) Temp >103.1 degrees F (39.5 C) (oral) or <96.8 degrees F (36 C) (rectal) that does not respond to all emergency treatment measures [ ]vi) Acute renal failure [ ]vii) IV fluid required rather than oral rehydration to replace significant on going losses (greater than 3 L/m2 per day) [ ]viii) Parenteral nutrition regimen that must be implemented on inpatient basis [ ]ix) Other condition, treatment or monitoring requiring inpatient admission Extended stay beyond goal length of stay may be needed for(1)(4): [ ]a) Severe vomiting [ ]b) Persistent vomiting, vital sign changes, severe electrolyte imbalance , or diagnosed cause of vomiting that requires continued hospitalization (eg, gastrointestinal obstruction , increased intracranial pressure) [ ]c) Surgery to treat identified causes of vomiting (eg, bowel obstruction , intracranial process) [ ]d) Comorbid illness that requires inpatient care (eg, acute heart failure , renal failure) [ ]e) Need for inpatient endoscopy The original [employer] content created by [employer] has been revised. The portions of the content which have been revised are identified through the use of italic text or in bold, and [employer] has neither reviewed nor approved the modified material. All other unmodified content is copyright [employer]. Please see references footnoted in the original [employer] edition 2016 JANE WALLER May 20, 2017 07:55
[2017-05-20] MEDS: oxyCODONE IR 5 MG TABLET PO PRN (08:11)
[2017-05-20] MEDS: LINACLOTIDE 145 MCG CAPSULE. PO SCH (08:56)
[2017-05-20] MEDS: ASPIRIN CHEWABLE 81 MG TABLET. PO SCH (08:56)
[2017-05-20] MEDS: NICOTINE 21MG PATCH. TD SCH (08:57)
[2017-05-20] MEDS: LISINOPRIL 10 MG TABLET PO SCH (08:57)
[2017-05-20] MEDS: POTASSIUM CL 20MEQ D5-0.45NACL 1,000 ML IV SCH (09:00)
--- NOTE | 2017-05-20 09:11 | PDOC ---
PROGRESS NOTES Subjective Subjective Patient reports nausea has resolved. Hungry for more food, feels he could go home later today. Objective Objective Vital Signs Date Time Temp Pulse Resp B/P (MAP) Pulse Ox O2 Delivery O2 Flow Rate FiO2 05/20/17 08:58 16 95 Room Air 05/20/17 08:57 73 115/81 05/20/17 07:12 97.9 97.9 Intake and Output 05/21/17 07:00 Output Total 750 ml Balance -750 ml Output Urine Total 750 ml Physical Exam Abdomen: Normal bowel sounds, Soft, No tenderness Heart: Regular rate Extremities: No edema General: Alert, Oriented X3, No acute distress Lungs: Clear to auscultation Assessment Assessment Problems Medical Problems: (1) Cyclical vomiting Status: Acute Plan Plan of Care 1. Nausea and vomiting with dehydration - resolved. Advance diet, discharge home today. Patient has Zofran at home to take if needed. 2. HTN - controlled, continue Lisinopril. 3. Chronic headaches - stable, continue his usual meds. 4. chronic back pain - stable, continue po pain meds. Comment Review of Relevant I have reviewed the following items mgadalena (where applicable) has been applied. Labs Laboratory Tests Test 05/19/17 02:55 05/20/17 03:45 White Blood Count 14.7 x10^3/uL (4.0-11.0) Red Blood Count 5.09 x10^6/uL (4.30-5.70) Hemoglobin 15.8 g/dL (13.0-17.5) Hematocrit 46.6 % (39.0-53.0) Mean Corpuscular Volume 92 fL (79-100) Mean Corpuscular Hemoglobin 31 pg (25-35) Mean Corpuscular Hemoglobin Concent 34 g/dL (31-37) Red Cell Distribution Width 14.1 % (11.5-14.5) Platelet Count 362 x10^3/uL (140-400) Neutrophils (%) (Auto) 77 % (31-73) Lymphocytes (%) (Auto) 18 % (24-48) Monocytes (%) (Auto) 4 % (0-9) Eosinophils (%) (Auto) 0 % (0-3) Basophils (%) (Auto) 1 % (0-3) Neutrophils # (Auto) 11.3 x10^3uL (1.8-7.7) Lymphocytes # (Auto) 2.7 x10^3/uL (1.0-4.8) Monocytes # (Auto) 0.6 x10^3/uL (0.0-1.1) Eosinophils # (Auto) 0.0 x10^3/uL (0.0-0.7) Basophils # (Auto) 0.1 x10^3/uL (0.0-0.2) Sodium Level 140 mmol/L (136-145) 140 mmol/L (136-145) Potassium Level 3.8 mmol/L (3.5-5.1) 4.0 mmol/L (3.5-5.1) Chloride Level 102 mmol/L (98-107) 107 mmol/L (98-107) Carbon Dioxide Level 27 mmol/L (21-32) 27 mmol/L (21-32) Anion Gap 11 (6-14) 6 (6-14) Blood Urea Nitrogen 24 mg/dL (8-26) 14 mg/dL (8-26) Creatinine 1.0 mg/dL (0.7-1.3) 0.8 mg/dL (0.7-1.3) Estimated GFR (Cockcroft-Gault) 79.4 102.7 BUN/Creatinine Ratio 24 (6-20) Glucose Level 142 mg/dL (70-99) 109 mg/dL (70-99) Calcium Level 10.0 mg/dL (8.5-10.1) 8.4 mg/dL (8.5-10.1) Total Bilirubin 0.4 mg/dL (0.2-1.0) Aspartate Amino Transf (AST/SGOT) 22 U/L (15-37) Alanine Aminotransferase (ALT/SGPT) 32 U/L (16-63) Alkaline Phosphatase 85 U/L (46-116) Total Protein 8.3 g/dL (6.4-8.2) Albumin 4.1 g/dL (3.4-5.0) Albumin/Globulin Ratio 1.0 (1.0-1.7) Laboratory Tests Test 05/20/17 03:45 Sodium Level 140 mmol/L (136-145) Potassium Level 4.0 mmol/L (3.5-5.1) Chloride Level 107 mmol/L (98-107) Carbon Dioxide Level 27 mmol/L (21-32) Anion Gap 6 (6-14) Blood Urea Nitrogen 14 mg/dL (8-26) Creatinine 0.8 mg/dL (0.7-1.3) Estimated GFR (Cockcroft-Gault) 102.7 Glucose Level 109 mg/dL (70-99) Calcium Level 8.4 mg/dL (8.5-10.1) Medications Current Medications Ondansetron HCl (Zofran) 4 mg 1X ONCE IV Last administered on 05/19/17 03:00 ; Start 05/19/17 at 03:00; Stop 05/19/17 at 03:01; Status DC Sodium Chloride 1,000 ml @ 1,000 mls/hr 1X ONCE IV Last administered on 03:00; Start 05/19/17 at 03:00; Stop 05/19/17 at 03:59; Status DC Hydromorphone HCl (Dilaudid) 1 mg 1X ONCE IV Last administered on 05/19/17 04 :25; Start 05/19/17 at 04:00; Stop 05/19/17 at 04:01; Status DC Metoclopramide HCl (Reglan) 10 mg 1X ONCE IV Last administered on 05/19/17 04 :25; Start 05/19/17 at 04:00; Stop 05/19/17 at 04:01; Status DC Diphenhydramine HCl (Benadryl) 25 mg 1X ONCE IVP Last administered on 04:25; Start 05/19/17 at 04:00; Stop 05/19/17 at 04:01; Status DC Morphine Sulfate 2 mg PRN Q2HR PRN IV SEVERE PAIN Last administered on 08:44; Start 05/19/17 at 04:15; Stop 05/20/17 at 04:14; Status DC Diphenhydramine HCl (Benadryl) 25 mg PRN Q4HRS PRN IVP NAUSEA Last administered on 05/19/17 11:45; Start 05/19/17 at 04:15 Metoclopramide HCl (Reglan) 10 mg PRN Q6HRS PRN IV NAUSEA Last administered on 05/19/17 15:19; Start 05/19/17 at 04:15 Ondansetron HCl (Zofran) 8 mg PRN Q8HRS PRN IV NAUSEA/VOMITING Last administered on 05/19/17 18:28; Start 05/19/17 at 08:45 Morphine Sulfate 4 mg PRN Q2HR PRN IV PAIN Last administered on 05/20/17 08:58 ; Start 05/19/17 at 08:45 Potassium Chloride/Dextrose/ Sod Cl 1,000 ml @ 100 mls/hr Q10H IV Last administered on 05/19/17 20:32; Start 05/19/17 at 08:45 Aspirin (Children'S Aspirin) 81 mg DAILY PO Last administered on 05/20/17 08: 56; Start 05/19/17 at 09:00 Atorvastatin Calcium (Lipitor) 40 mg QHS PO Last administered on 05/19/17 20: 31; Start 05/19/17 at 21:00 Lisinopril (Prinivil) 10 mg DAILY PO Last administered on 05/20/17 08:57; Start 05/19/17 at 09:00 Non-Formulary Medication 1 puff PRN Q6HRS PRN INH SHORTNESS OF BREATH; Start at 08:45; Stop 05/19/17 at 09:07; Status DC Linaclotide (Linzess) 145 mcg DAILY PO Last administered on 05/20/17 08:56; Start 05/19/17 at 09:00 Oxycodone HCl (Roxicodone) 10 mg PRN Q6HRS PRN PO PAIN Last administered on 08:11; Start 05/19/17 at 09:00 Nicotine (Nicoderm Cq 21mg) 1 patch DAILY TD Last administered on 05/20/17 08: 57; Start 05/19/17 at 09:00 Albuterol Sulfate (Ventolin Neb Soln) 2.5 mg PRN Q6HRS PRN NEB SHORTNESS OF BREATH; Start 05/19/17 at 09:00 Active Scripts Active Linzess (Linaclotide) 145 Mcg Capsule 145 Mcg PO DAILY 30 Days Oxycodone Hcl 10 Mg Tablet 1 Tab PO QID Proair Hfa Inhaler (Albuterol Sulfate) 8.5 Gm Hfa.aer.ad 1 Puff INH PRN Q6HRS PRN Aspirin 81 Mg Tab.chew 1 Tab PO DAILY L-Tryptophan (Tryptophan) 500 Mg Capsule 500 Mg PO DAILY Co Q-10 100 Mg Softgel (Ubidecarenone/Vit E Acetate) 1 Each Capsule 1 Each PO DAILY Zofran (Ondansetron Hcl) 4 Mg Tablet 1 Tab PO Q6HRS Reported Atorvastatin Calcium 40 Mg Tablet 1 Tab PO DAILY Lisinopril 10 Mg Tablet 1 Tab PO DAILY Vitals/I & O Vital Sign - Last 24 Hours 05/19/17 05/19/17 05/19/17 05/19/17 11:00 11:37 15:00 15:20 Temp 98.1 98.6 98.1 98.6 Pulse 95 69 Resp 20 20 B/P (MAP) 149/90 (109) 147/89 (108) Pulse Ox 96 96 100 100 O2 Delivery Room Air Room Air Room Air Room Air 05/19/17 05/19/17 05/19/17 05/19/17 16:54 18:29 19:28 19:28 Pulse Ox 100 100 100 100 O2 Delivery Room Air Room Air Room Air 05/19/17 05/19/17 05/19/17 05/19/17 19:28 19:43 20:00 20:38 Temp 98.7 98.7 Pulse 78 Resp 16 B/P (MAP) 90/52 (65) Pulse Ox 100 98 O2 Delivery Room Air Room Air Room Air 05/19/17 05/19/17 05/19/17 05/19/17 22:45 23:15 23:53 23:53 Temp 98.3 98.3 Pulse 75 Resp 16 B/P (MAP) 114/76 (89) Pulse Ox 96 O2 Delivery Room Air Room Air Room Air Room Air 05/20/17 05/20/17 05/20/17 05/20/17 00:53 03:36 03:46 07:12 Temp 97.9 97.9 97.9 97.9 Pulse 60 73 Resp 16 18 B/P (MAP) 102/71 (81) 115/81 (92) Pulse Ox 96 97 O2 Delivery Room Air Room Air Room Air Room Air 05/20/17 05/20/17 05/20/17 08:11 08:57 08:58 Pulse 73 Resp 16 16 B/P (MAP) 115/81 Pulse Ox 96 95 O2 Delivery Room Air Room Air Intake and Output 05/20/17 05/20/17 05/21/17 15:00 23:00 07:00 Output Total 750 ml Balance -750 ml MARI JEAN BAPTISTE MD May 20, 2017 09:11
[2017-05-20 10:26] VITALS: BP 122/80
--- NOTE | 2017-05-20 11:15 | DS ---
DATE OF DISCHARGE: 05/20/2017 CHIEF COMPLAINT: Vomiting. HISTORY OF PRESENT ILLNESS: The patient is a 47-year-old male with a history of chronic cyclic vomiting syndrome and chronic headache. He presented to the Emergency Room with the above complaint. He reported that his emesis had started on the evening prior to admission after eating at [employer]. He tried taking Zofran that he had at home, but this was not effective. When his symptoms persisted, he came to the Emergency Room. He has required hospitalization in the past for treatment of his vomiting and subsequent dehydration. He denied any abdominal pain or diarrhea with his symptoms. When seen in the Emergency Room, he was found to be mildly dehydrated. He was given antiemetics and IV fluid and admitted for further care. HOSPITAL COURSE: The patient was continued on IV fluids and Zofran as needed. His nausea and vomiting quickly resolved and he has had no further emesis since he was hospitalized. His lab has improved and he is no longer dehydrated. He has been tolerating clear liquids and is asking for more food today. His diet will be advanced and he will be discharged home later today if he is able to tolerate a regular diet. He already has Zofran available to him at home. The patient has hypertension and his blood pressure was well controlled with his usual lisinopril. He has chronic headache and chronic back and neck pain. He received his usual oxycodone for this with IV morphine as needed, which he took frequently. The patient is still smoking and is not really interested in smoking cessation at this time. He did well on a nicotine patch while hospitalized. The patient feels much better and will be discharged home today. FINAL DIAGNOSES: 1. Nausea and vomiting with dehydration. 2. Chronic headache. 3. Hypertension. 4. Chronic back pain. DISCHARGE MEDICATIONS: Albuterol inhaler as needed, aspirin 81 mg daily, atorvastatin 40 mg daily, Linzess 145 mcg daily, lisinopril 10 mg daily, Zofran 4 mg p.o. p.r.n. nausea, oxycodone 10 mg q.i.d. p.r.n. FOLLOWUP: With Dr. Paula as needed. MARI JEAN BAPTISTE MD DR: DESIREE/caryl JOB#: [id number] / [id number] ASHA
== END 2017-05-20 12:00 | disposition home or self-care (01) | DRG 103 ==
LOC: ER 02:41 → 6 SOUTH 04:17
PROVIDERS: ADMIT Family Medicine; ATTEND Family Medicine
DX: G43.A0 Cyclical vomiting, in migraine, not intractable (principal); I10 Essential (primary) hypertension; E86.0 Dehydration; E78.5 Hyperlipidemia, unspecified; F17.210 Nicotine dependence, cigarettes, uncomplicated; G89.29 Other chronic pain; M54.9 Dorsalgia, unspecified; M51.36 Other intervertebral disc degeneration, lumbar region; Z87.442 Personal history of urinary calculi; Z93.3 Colostomy status
CPT/HCPCS: 36415; 80048; 80053; 85025; 94250; 94760; 96361; 96374; 96375; G0379; J1170; J1200; J2270; J2405; J2765; J7030; 99285-25

== ENCOUNTER 2017-08-02 09:19 | Emergency (ER) | payer BC ==
[~2017-08-02] VITALS: Ht 175.3 cm; Wt 87.1 kg
[~2017-08-02 09:19] MED LIST changes: +LINA145C PO
[2017-08-02] MEDS ORDERED: KETOROLAC 30 MG/ML INJ. IV ONE (10:00)
[2017-08-02] MEDS ORDERED: METOCLOPRAMIDE HCL 10 MG/2 ML VIAL. IV ONE (10:00)
--- NOTE | 2017-08-02 10:03 | PHYS DOC ---
Past Medical History Past Medical History: Diverticulitis, Migraines, Other Additional Past Medical Histor: chronic headaches; cyclic vomiting syndrome Past Surgical History: Other Additional Past Surgical Histo: colostomy and colostomy reversal Alcohol Use: None Drug Use: Marijuana, Opiates Social History Narrative: pt denies 08/02/17 Adult General Chief Complaint Chief Complaint: EARACHE/EAR PAIN HPI HPI Patient is a 47 year old male who presents with an earache and decreased hearing to the right side with pain in the bone and a headache. The patient is a migraine sufferer but states that this headache does not feel he has normal headaches do. He did have Botox injections for his migraine treatment within the past 30 days. The symptoms began a few days ago and have continued to worsen. He denies double vision, nausea or vomiting. He denies weakness or paralysis. Review of Systems Review of Systems Constitutional: Denies fever or chills [] Eyes: Denies change in visual acuity, redness, or eye pain [] HENT: See history of present illness Respiratory: Denies cough or shortness of breath [] Cardiovascular: No additional information not addressed in HPI [] GI: Denies abdominal pain, nausea, vomiting, bloody stools or diarrhea [] : Denies dysuria or hematuria [] Musculoskeletal: Denies back pain or joint pain [] Integument: Denies rash or skin lesions [] Neurologic: See history of present illness Endocrine: Denies polyuria or polydipsia [] All other systems were reviewed and found to be within normal limits, except as documented in this note. Current Medications Current Medications Current Medications Medications (Trade) Dose Ordered Sig/[facility] Start Time Stop Time Status Last Admin Dose Admin Diphenhydramine HCl (Benadryl) 50 mg 1X ONCE 08/02/17 11:45 08/02/17 11:46 DC 08/02/17 11:13 50 MG Ketorolac Tromethamine (Toradol) 30 mg 1X ONCE 08/02/17 10:00 08/02/17 10:01 DC 08/02/17 10:10 30 MG Metoclopramide HCl (Reglan Vial) 10 mg 1X ONCE 08/02/17 10:00 08/02/17 10:01 DC 08/02/17 10:10 10 MG Morphine Sulfate 4 mg 1X ONCE 08/02/17 11:45 08/02/17 11:46 DC 08/02/17 11:13 4 MG Allergies Allergies Allergies Coded Allergies Type Severity Reaction Last Updated Verified aspirin Allergy Mild irritates stomach 12/26/15 Yes Physical Exam Physical Exam Constitutional: Well developed, well nourished, no acute distress, non-toxic appearance. [] HENT: Normocephalic, atraumatic, right ear canal is completely occluded with cerumen, TM is not visible, left TM is normal, patient does have mild mastoid tenderness with palpation to the right side, oropharynx moist, no oral exudates , nose normal. [] Eyes: PERRLA, EOMI, conjunctiva normal, no discharge, mild light sensitivity with this headache. [] Neck: Normal range of motion, no tenderness, supple, no stridor. [] Cardiovascular:Heart rate regular rhythm, no murmur [] Lungs & Thorax: Bilateral breath sounds clear to auscultation [] Abdomen: Bowel sounds normal, soft, no tenderness, no masses, no pulsatile masses. [] Skin: Warm, dry, no erythema, no rash. [] Back: No tenderness, no CVA tenderness. [] Extremities: No tenderness, no cyanosis, no clubbing, ROM intact, no edema. [] Neurologic: Alert and oriented X 3, normal motor function, normal sensory function, no focal deficits noted. [] Psychologic: Affect normal, judgement normal, mood normal. [] Current Patient Data Vital Signs Vital Signs Date Time Temp Pulse Resp B/P (MAP) Pulse Ox O2 Delivery O2 Flow Rate FiO2 08/02/17 11:29 79 17 134/88 (103) 96 Room Air 08/02/17 09:25 97.9 97.9 Lab Values Laboratory Tests Test 08/02/17 10:10 White Blood Count 13.1 x10^3/uL (4.0-11.0) H Red Blood Count 4.98 x10^6/uL (4.30-5.70) Hemoglobin 15.7 g/dL (13.0-17.5) Hematocrit 46.5 % (39.0-53.0) Mean Corpuscular Volume 93 fL (79-100) Mean Corpuscular Hemoglobin 31 pg (25-35) Mean Corpuscular Hemoglobin Concent 34 g/dL (31-37) Red Cell Distribution Width 13.3 % (11.5-14.5) Platelet Count 320 x10^3/uL (140-400) Neutrophils (%) (Auto) 68 % (31-73) Lymphocytes (%) (Auto) 23 % (24-48) L Monocytes (%) (Auto) 7 % (0-9) Eosinophils (%) (Auto) 1 % (0-3) Basophils (%) (Auto) 1 % (0-3) Neutrophils # (Auto) 8.9 x10^3uL (1.8-7.7) H Lymphocytes # (Auto) 3.0 x10^3/uL (1.0-4.8) Monocytes # (Auto) 0.9 x10^3/uL (0.0-1.1) Eosinophils # (Auto) 0.1 x10^3/uL (0.0-0.7) Basophils # (Auto) 0.1 x10^3/uL (0.0-0.2) Sodium Level 136 mmol/L (136-145) Potassium Level 4.0 mmol/L (3.5-5.1) Chloride Level 102 mmol/L (98-107) Carbon Dioxide Level 24 mmol/L (21-32) Anion Gap 10 (6-14) Blood Urea Nitrogen 17 mg/dL (8-26) Creatinine 0.8 mg/dL (0.7-1.3) Estimated GFR (Cockcroft-Gault) 102.7 BUN/Creatinine Ratio 21 (6-20) H Glucose Level 101 mg/dL (70-99) H Calcium Level 9.1 mg/dL (8.5-10.1) Total Bilirubin 0.7 mg/dL (0.2-1.0) Aspartate Amino Transferase (AST) 19 U/L (15-37) Alanine Aminotransferase (ALT) 30 U/L (16-63) Alkaline Phosphatase 78 U/L (46-116) Total Protein 7.8 g/dL (6.4-8.2) Albumin 3.7 g/dL (3.4-5.0) Albumin/Globulin Ratio 0.9 (1.0-1.7) L Laboratory Tests 08/02/17 10:10 Laboratory Tests 08/02/17 10:10 EKG EKG [] Radiology/Procedures Radiology/Procedures Following cerumen removal the TM is erythematous. Impressions: PATIENT: GABRIELE,MARIA DEL CARMEN E ACCOUNT: [id number] : 1970 LOCATION: ER AGE: 47 SEX: M EXAM STATUS: REG ER ORD. PHYSICIAN: RAND ROYAL APRN REASON: headache with right mastoid tenderness and ear pain PROCEDURE: CT HEAD WO CONTRAST CT HEAD WITHOUT CONTRAST History: Chronic headache with right mastoid tenderness and ear pain . Comparison: August 28, 2014, Correlation with brain MRI dated August 14, 2016. Procedure: Axial images are obtained of the head from the skull base through the vertex without IV contrast. One or more of the following individualized dose reduction techniques were utilized for this examination: 1. Automated exposure control 2. Adjustment of the mA and/or kV according to patient size 3. Use of iterative reconstruction technique Findings: Francois-white matter differentiation is preserved. The ventricles and sulci are normal for the patient's age.. No mass-effect, midline shift, hemorrhage or obvious acute infarction is identified. Basilar cisterns are patent. Overlying scalp and calvarium are intact.There is partial visualization of partial opacification of the right maxillary sinus, with mucosal thickening seen within the ethmoid air cells and left sphenoid sinus. There is partial opacification of the right mastoid air cells, consistent with fluid present. No definite osseous erosion seen. No overlying soft tissue swelling or adjacent intraparenchymal abnormality is seen. IMPRESSION: 1. No acute intracranial abnormality. 2. Fluid is present within the right mastoid air cells. Partially visualized paranasal sinus disease also present. DICTATED and SIGNED BY: KYLE ROMO MD DATE: 08/02/17 1053 CC: RAND ROYAL APRN; Caity NOE MD ~ Course & Med Decision Making Course & Med Decision Making Pertinent Labs and Imaging studies reviewed. (See chart for details) []1. Otitis media 2. Headache Following administration of fluids, Toradol, Reglan, morphine and Benadryl the patient's headache has resolved. The patient was sent home with Augmentin for his otitis. He is to keep his normal follow-up appointments for his headache. Please return to the ED if worsening. Dragon Disclaimer Dragon Disclaimer This electronic medical record was generated, in whole or in part, using a voice recognition dictation system. Departure Departure Referrals: Caity NOE MD (PCP) Scripts Amoxicillin/Potassium Clav (AMOX TR-K CLV 500-125 MG TAB) 1 Each Tablet 1 TAB PO BID, #20 TAB Prov: RAND ROYAL APRN 08/02/17 RAND ROYAL APRN Aug 02, 2017 10:03
[2017-08-02 10:31] LABS: BASO # 0.1 x10^3/uL (0.0-0.2); BASO % 1 % (0-3); EOS % 1 % (0-3); HEMATOCRIT 46.5 % (39.0-53.0); HEMOGLOBIN 15.7 g/dL (13.0-17.5); LYMPH % 23 % (24-48); MEAN CORPUSCULAR HEMOGLOBIN 31 pg (25-35); MEAN CORPUSCULAR HGB CONC 34 g/dL (31-37); MEAN CORPUSCULAR VOLUME 93 fL (79-100); MONO % 7 % (0-9); NEUT % 68 % (31-73); PLATELET COUNT 320 x10^3/uL (140-400); RED BLOOD COUNT 4.98 x10^6/uL (4.30-5.70); RED CELL DISTRIBUTION WIDTH 13.3 % (11.5-14.5); WHITE BLOOD COUNT 13.1 x10^3/uL (4.0-11.0)
[2017-08-02 10:41] LABS: CALCIUM 9.1 mg/dL (8.5-10.1); CREATININE 0.8 mg/dL (0.7-1.3); GFR 102.7
[2017-08-02 10:47] LABS: ALBUMIN 3.7 g/dL (3.4-5.0); ALBUMIN/GLOBULIN RATIO 0.9 (1.0-1.7); TOTAL BILIRUBIN 0.7 mg/dL (0.2-1.0); TOTAL PROTEIN 7.8 g/dL (6.4-8.2)
--- NOTE | 2017-08-02 11:04 | RAD ---
CT HEAD WITHOUT CONTRAST History: Chronic headache with right mastoid tenderness and ear pain . Comparison: August 28, 2014, Correlation with brain MRI dated August 14, 2016. Procedure: Axial images are obtained of the head from the skull base through the vertex without IV contrast. One or more of the following individualized dose reduction techniques were utilized for this examination: 1. Automated exposure control 2. Adjustment of the mA and/or kV according to patient size 3. Use of iterative reconstruction technique Findings: Francois-white matter differentiation is preserved. The ventricles and sulci are normal for the patient's age.. No mass-effect, midline shift, hemorrhage or obvious acute infarction is identified. Basilar cisterns are patent. Overlying scalp and calvarium are intact.There is partial visualization of partial opacification of the right maxillary sinus, with mucosal thickening seen within the ethmoid air cells and left sphenoid sinus. There is partial opacification of the right mastoid air cells, consistent with fluid present. No definite osseous erosion seen. No overlying soft tissue swelling or adjacent intraparenchymal abnormality is seen. IMPRESSION: 1. No acute intracranial abnormality. 2. Fluid is present within the right mastoid air cells. Partially visualized paranasal sinus disease also present.
[2017-08-02 11:29] VITALS: BP 134/88
[2017-08-02] MEDS ORDERED: MORPHINE SULFATE 4 MG/ML DISP.SYRIN. IV ONE (11:45)
[2017-08-02] MEDS ORDERED: diphenhydrAMINE 50 MG/ML VIAL IVP ONE (11:45)
[2017-08-02] MEDS ORDERED: AMOX1TAB10 PO (11:57)
== END 2017-08-02 12:04 | disposition home or self-care (01) ==
LOC: ER 09:19
DX: H66.91 Otitis media, unspecified, right ear (principal); R51 Headache; G89.29 Other chronic pain; F12.10 Cannabis abuse, uncomplicated; F11.10 Opioid abuse, uncomplicated; Z88.6 Allergy status to analgesic agent
CPT/HCPCS: 36415; 70450; 80053; 85025; 96374; 96375; 99285; J1200; J1885; J2270; J2765

== ENCOUNTER 2017-12-01 05:03 | Observation (INO) | payer BC ==
[2017-12-01 05:19] LABS: ADD MAN DIFF? NO
[2017-12-01] MEDS: METOCLOPRAMIDE HCL 10 MG/2 ML VIAL. IV (05:21)
[2017-12-01] MEDS: HALOPERIDOL LACTATE 5 MG/ML VIAL. IVP (05:21)
[2017-12-01 05:22] LABS: BASO # 0.1 x10^3/uL (0.0-0.2); BASO % 1 % (0-3); EOS % 0 % (0-3); HEMATOCRIT 45.1 % (39.0-53.0); HEMOGLOBIN 15.1 g/dL (13.0-17.5); LYMPH # 2.7 x10^3/uL (1.0-4.8); LYMPH % 17 % (24-48); MEAN CORPUSCULAR HEMOGLOBIN 31 pg (25-35); MEAN CORPUSCULAR HGB CONC 34 g/dL (31-37); MEAN CORPUSCULAR VOLUME 92 fL (79-100); MONO # 0.5 x10^3/uL (0.0-1.1); MONO % 3 % (0-9); NEUT # 12.1 x10^3uL (1.8-7.7); NEUT % 79 % (31-73); PLATELET COUNT 353 x10^3/uL (140-400); RED CELL DISTRIBUTION WIDTH 14.3 % (11.5-14.5); WHITE BLOOD COUNT 15.3 x10^3/uL (4.0-11.0)
[2017-12-01] MEDS: diphenhydrAMINE 50 MG/ML VIAL IVP (05:22)
[2017-12-01] MEDS: IV NORMAL SALINE 1000ML BAG 1,000 ML IV ×2 (05:26→06:49)
[2017-12-01] MEDS ORDERED: ONDANSETRON PF 4 MG/2 ML VIAL. IV (05:30)
[2017-12-01] MEDS ORDERED: diphenhydrAMINE 50 MG/ML VIAL IVP (05:30)
[2017-12-01] MEDS ORDERED: METOCLOPRAMIDE HCL 10 MG/2 ML VIAL. IV (05:30)
[2017-12-01 05:34] LABS: ANION GAP 8 (6-14); BLOOD UREA NITROGEN 18 mg/dL (8-26); BUN/CREATININE RATIO 16 (6-20); CALCIUM 9.5 mg/dL (8.5-10.1); CARBON DIOXIDE 27 mmol/L (21-32); CHLORIDE 106 mmol/L (98-107); CREATININE 1.1 mg/dL (0.7-1.3); GFR 71.1; GLUCOSE 150 mg/dL (70-99); POTASSIUM 4.2 mmol/L (3.5-5.1); SODIUM 141 mmol/L (136-145)
[2017-12-01 05:39] LABS: ALBUMIN 3.7 g/dL (3.4-5.0); ALBUMIN/GLOBULIN RATIO 0.9 (1.0-1.7); ALK PHOS 89 U/L (46-116); ALT (SGPT) 27 U/L (16-63); AST (SGOT) 17 U/L (15-37); LIPASE 88 U/L (73-393); TOTAL BILIRUBIN 0.4 mg/dL (0.2-1.0)
[2017-12-01] MEDS: ONDANSETRON ODT 4 MG TAB.RAPDIS. PO ×2 (12:07→17:14)
[2017-12-01] MEDS: oxyCODONE IR 5 MG TABLET PO (12:07)
[2017-12-01] MEDS: ENOXAPARIN 40 MG/0.4 ML SYRINGE. SQ (14:12)
[2017-12-01] MEDS: FAMOTIDINE 20 MG/2 ML VIAL IVP ×2 (14:16→20:18)
[2017-12-01] MEDS: oxyCODONE/APAP 10/325 1 TAB TABLET PO (17:14)
[2017-12-01 21:20] LABS: BARBITURATES NEG (NEG); BENZODIAZEPINES NEG (NEG); CANNABINOIDS POS (NEG); COCAINE NEG (NEG); METHADONE NEG (NEG); OPIATES POS (NEG); PHENCYCLIDINE NEG (NEG)
[2017-12-01 21:21] LABS: AMPHETAMINE/METHAMPHETAMINE NEG (NEG); ETHANOL, URINE NEG (NEG)
[2017-12-02] MEDS: oxyCODONE/APAP 10/325 1 TAB TABLET PO ×2 (02:32→07:19)
[2017-12-02 04:46] LABS: ADD MAN DIFF? NO
[2017-12-02 04:54] LABS: BASO % 0 % (0-3); EOS # 0.1 x10^3/uL (0.0-0.7); EOS % 1 % (0-3); HEMATOCRIT 40.6 % (39.0-53.0); HEMOGLOBIN 13.6 g/dL (13.0-17.5); LYMPH # 4.3 x10^3/uL (1.0-4.8); LYMPH % 35 % (24-48); MEAN CORPUSCULAR HEMOGLOBIN 31 pg (25-35); MEAN CORPUSCULAR HGB CONC 34 g/dL (31-37); MEAN CORPUSCULAR VOLUME 93 fL (79-100); MONO # 1.1 x10^3/uL (0.0-1.1); MONO % 9 % (0-9); NEUT # 6.9 x10^3uL (1.8-7.7); NEUT % 55 % (31-73); PLATELET COUNT 285 x10^3/uL (140-400); RED BLOOD COUNT 4.38 x10^6/uL (4.30-5.70); RED CELL DISTRIBUTION WIDTH 14.2 % (11.5-14.5); WHITE BLOOD COUNT 12.5 x10^3/uL (4.0-11.0)
[2017-12-02 05:25] LABS: ALBUMIN 2.9 g/dL (3.4-5.0); ALBUMIN/GLOBULIN RATIO 0.8 (1.0-1.7); ALK PHOS 72 U/L (46-116); ALT (SGPT) 23 U/L (16-63); ANION GAP 9 (6-14); AST (SGOT) 34 U/L (15-37); BLOOD UREA NITROGEN 11 mg/dL (8-26); BUN/CREATININE RATIO 14 (6-20); CALCIUM 8.6 mg/dL (8.5-10.1); CARBON DIOXIDE 25 mmol/L (21-32); CHLORIDE 108 mmol/L (98-107); CREATININE 0.8 mg/dL (0.7-1.3); GFR 102.7; GLUCOSE 106 mg/dL (70-99); POTASSIUM 3.4 mmol/L (3.5-5.1); SODIUM 142 mmol/L (136-145); TOTAL BILIRUBIN 0.6 mg/dL (0.2-1.0); TOTAL PROTEIN 6.5 g/dL (6.4-8.2)
[2017-12-02] MEDS: ONDANSETRON ODT 4 MG TAB.RAPDIS. PO ×2 (06:00)
[2017-12-02] MEDS: FAMOTIDINE 20 MG/2 ML VIAL IVP (07:19)
[2017-12-02] MEDS: LISINOPRIL 10 MG TABLET PO (08:16)
== END 2017-12-02 10:28 | disposition home or self-care (01) ==
LOC: ER 05:03 → 5 SOUTH 05:43
DX: R11.2 Nausea with vomiting, unspecified (principal); K21.9 Gastro-esophageal reflux disease without esophagitis; I10 Essential (primary) hypertension; K57.30 Diverticulosis of large intestine without perforation or abscess without bleeding; R51 Headache; F17.210 Nicotine dependence, cigarettes, uncomplicated; M54.2 Cervicalgia; N20.0 Calculus of kidney; G89.29 Other chronic pain; Z82.49 Family history of ischemic heart disease and other diseases of the circulatory system; Z93.3 Colostomy status
CPT/HCPCS: 36415; 80053; 80307; 83690; 85025; 96361; 96374; 96375; 96376; 99285; G0378; G0379; J1200; J1630; J2765; J7030; Q0162; S0028

== ENCOUNTER → 2018-07-22 | Outpatient (CLI) | payer BC ==
[2017-12-02 08:16] VITALS: BP 114/86
[~2018-07-22] MED LIST changes: +AMOX1TAB10 PO; +FAMO20VI3 IVP
--- NOTE | 2018-07-22 16:26 | RAD ---
AP standing view of both knees and 4 view study of the left knee Clinical indications: Posttraumatic osteoarthritis. Left knee joint pain. FINDINGS: Left knee: No acute fracture or dislocation or osteolytic process is evident. The patella is normally aligned. Degenerative chondrocalcinosis of the articular cartilage of the patella is seen. There is mild degenerative chondrocalcinosis of the lateral meniscus. Minimal degenerative spurring of the medial tibiofemoral joint compartment is seen without joint space narrowing. AP standing view of the right knee demonstrates no significant osseous abnormality. IMPRESSION: Mild primary degenerative osteoarthritis of the left knee. No acute fracture. Electronically signed by: David Oscar MD (07/22/2018 4:22 PM) [email or web address]
== END | disposition home or self-care (01) ==
LOC: RAD 12:39
PROVIDERS: ATTEND Family Medicine
DX: M17.32 Unilateral post-traumatic osteoarthritis, left knee (principal); M11.262 Other chondrocalcinosis, left knee
CPT/HCPCS: 73564; 73565

== ENCOUNTER → 2018-09-03 | Outpatient (CLI) | payer BC ==
[2017-12-02 08:16] VITALS: BP 114/86
[~2018-09-03] MED LIST changes: +ALBU2.5V8 INH; -HYDR-2762 PO; +HYDR-2765 PO; -LINA145C PO; +LINZESS145 MCG PO; -PROAIR HFA8.5 GM INH
--- NOTE | 2018-09-03 14:19 | RAD ---
MR of the left knee Indication: Chronic left knee pain, worse medial and posterior. Comparison: None are available. Technique: The standard multiplanar sequences are obtained. FINDINGS: Artifact: No significant image degradation. Medial meniscus: Radial tear at the body of the medial meniscus. There is a small meniscal flap which is displaced superiorly, alongside the medial femoral condyle. Lateral meniscus: Intact. Anterior cruciate ligament: Intact. Posterior cruciate ligament: Intact Medial collateral ligament: Intact. Lateral structures: * Iliotibial band: Intact. * Lateral collateral ligament: Intact. * Biceps femoris tendon: Intact * Popliteus tendon attachment: Intact Extensive mechanism: * Patellar tendon: Intact * Quadriceps tendon: Intact * Retinacular structures: Intact Fluid: Trace joint effusion. Trace Lopez's cyst. Intra-articular bodies: None visualized Joint compartments * patellofemoral joint: Moderate chondromalacia of the patella. * medial compartment: Mild chondral thinning. * lateral compartment: Moderate chondromalacia posterior lateral tibial plateau. Bones: No significant lesion or acute fracture. Soft tissue: Unremarkable Impression: 1. Medial meniscal tear. Mildly displaced flap. 2. Primary osteoarthritis. Electronically signed by: Trever Keene MD (09/03/2018 2:15 PM) [id number]
== END | disposition home or self-care (01) ==
LOC: MRI 10:51
PROVIDERS: ATTEND Family Medicine
DX: S83.242A Other tear of medial meniscus, current injury, left knee, initial encounter (principal); M17.12 Unilateral primary osteoarthritis, left knee; M22.42 Chondromalacia patellae, left knee; X58.XXXA Exposure to other specified factors, initial encounter; Y93.89 Activity, other specified; Y92.89 Other specified places as the place of occurrence of the external cause; Y99.8 Other external cause status
CPT/HCPCS: 73721

== ENCOUNTER 2018-10-02 03:48 | Emergency (ER) | payer BC ==
[~2018-10-02] VITALS: Ht 172.7 cm; Wt 88.9 kg
[2018-10-02] MEDS ORDERED: IV NORMAL SALINE 1000ML BAG 1,000 ML IV SCH (05:00)
[2018-10-02] MEDS ORDERED: PROCHLORPERAZINE 10 MG/2 ML VIAL. IV ONE (05:00)
[2018-10-02] MEDS ORDERED: KETOROLAC 30 MG/ML VIAL. IV ONE (05:00)
--- NOTE | 2018-10-02 05:08 | PHYS DOC ---
Past Medical History Past Medical History: Diverticulitis, Migraines, Other Additional Past Medical Histor: chronic headaches; cyclic vomiting syndrome (JEANMARIE COPPOLA DO) Past Surgical History: Other Additional Past Surgical Histo: colostomy and colostomy reversal (JEANMARIE COPPOLA DO) Alcohol Use: None Drug Use: Marijuana, Opiates (JEANMARIE COPPOLA DO) Adult General Chief Complaint Chief Complaint: NAUSEA/VOMITING/DIARRHA HPI HPI Patient is a 48 year old male who presents with vomiting since 2200 tonight. Denies any blood in the emesis. Reports still passing flatus. Patient does have a history of a colostomy as well as a colostomy reversal. Patient also has a history of cyclic vomiting syndrome. Patient denies using any illicit drugs to include marijuana. Reports nothing helps with this. Patient has been previously admitted for IV hydration and IV antiemetics.[] (JEANMARIE COPPOLA DO) Review of Systems Review of Systems Constitutional: Denies fever or chills [] Eyes: Denies change in visual acuity, redness, or eye pain [] HENT: Denies nasal congestion or sore throat [] Respiratory: Denies cough or shortness of breath [] Cardiovascular: No chest pain or palpitations[] GI: See history of present illness[] : Denies dysuria or hematuria [] Musculoskeletal: Denies back pain or joint pain [] Integument: Denies rash or skin lesions [] Neurologic: Denies headache, focal weakness or sensory changes [] Endocrine: Denies polyuria or polydipsia [] All other systems were reviewed and found to be within normal limits, except as documented in this note. (JEANMARIE COPPOLA DO) Current Medications Current Medications Current Medications Medications (Trade) Dose Ordered Sig/Alejandra Start Time Stop Time Status Last Admin Dose Admin Capsaicin (Zostrix) 1 yahir 1X ONCE 10/02/18 07:00 10/02/18 07:01 DC 10/02/18 06:43 1 YAHIR Fentanyl Citrate (Fentanyl 2ml Vial) 75 mcg 1X ONCE 10/02/18 07:00 10/02/18 07:01 DC 10/02/18 06:44 75 MCG Ketorolac Tromethamine (Toradol 30mg Vial) 30 mg 1X ONCE 10/02/18 05:00 10/02/18 05:01 DC 10/02/18 04:56 30 MG Prochlorperazine Edisylate (Compazine) 5 mg 1X ONCE 10/02/18 05:00 10/02/18 05:01 DC 10/02/18 04:55 5 MG Sodium Chloride 1,000 ml @ 1,000 mls/hr Q1H 10/02/18 05:00 10/02/18 05:59 DC 10/02/18 04:56 1,000 MLS/HR (ABEL WALLS DO) Allergies Allergies Allergies Coded Allergies Type Severity Reaction Last Updated Verified aspirin Adverse Reaction Mild irritates stomach 12/01/17 Yes (ABEL WALLS DO) Physical Exam Physical Exam Constitutional: Well developed, well nourished, mild discomfort. [] HENT: Normocephalic, atraumatic, bilateral external ears normal, oropharynx moist, no oral exudates, nose normal. [] Eyes: PERRLA, EOMI, conjunctiva normal, no discharge. [] Neck: Normal range of motion, no tenderness, supple, no stridor. [] Cardiovascular:Heart rate regular rhythm, no murmur [] Lungs & Thorax: Bilateral breath sounds clear to auscultation [] Abdomen: Bowel sounds normal, soft, diffuse tenderness, no rebound, no guarding , no rigidity, no masses, no pulsatile masses. [] Skin: Warm, dry, no erythema, no rash. [] Back: No tenderness, no CVA tenderness. [] Extremities: No tenderness, no cyanosis, no clubbing, ROM intact, no edema. [] Neurologic: Alert and oriented X 3, normal motor function, normal sensory function, no focal deficits noted. [] Psychologic: Affect normal, judgement normal, mood normal. [] (EIDENBERG,JEANMARIE DO) Physical Exam Constitutional: Well developed, well nourished HENT: Normocephalic, atraumatic, oropharynx moist Eyes: EOMI, conjunctiva normal, no discharge. Neck: Normal range of motion, no tenderness, supple, no meningeal signs Abdomen: Soft, nontender, no rebound, no guarding, no rigidity Skin: Warm, dry Neurologic: Alert and oriented X 3, normal motor function, normal sensory function, no focal deficits noted. (ABEL WALLS DO) Current Patient Data Vital Signs Vital Signs Date Time Temp Pulse Resp B/P (MAP) Pulse Ox O2 Delivery O2 Flow Rate FiO2 10/02/18 04:00 97.4 82 22 142/93 (109) 98 Room Air 97.4 (WALLSABEL WONG DO) Lab Values Laboratory Tests Test 10/02/18 05:00 10/02/18 05:30 White Blood Count 19.1 x10^3/uL (4.0-11.0) H Red Blood Count 5.42 x10^6/uL (4.30-5.70) Hemoglobin 17.0 g/dL (13.0-17.5) Hematocrit 50.2 % (39.0-53.0) Mean Corpuscular Volume 93 fL (79-100) Mean Corpuscular Hemoglobin 31 pg (25-35) Mean Corpuscular Hemoglobin Concent 34 g/dL (31-37) Red Cell Distribution Width 14.1 % (11.5-14.5) Platelet Count 352 x10^3/uL (140-400) Neutrophils (%) (Auto) 80 % (31-73) H Lymphocytes (%) (Auto) 16 % (24-48) L Monocytes (%) (Auto) 3 % (0-9) Eosinophils (%) (Auto) 1 % (0-3) Basophils (%) (Auto) 0 % (0-3) Neutrophils # (Auto) 15.3 x10^3uL (1.8-7.7) H Lymphocytes # (Auto) 3.1 x10^3/uL (1.0-4.8) Monocytes # (Auto) 0.5 x10^3/uL (0.0-1.1) Eosinophils # (Auto) 0.1 x10^3/uL (0.0-0.7) Basophils # (Auto) 0.1 x10^3/uL (0.0-0.2) Platelet Estimate Pending Sodium Level 136 mmol/L (136-145) Potassium Level 4.5 mmol/L (3.5-5.1) Chloride Level 103 mmol/L (98-107) Carbon Dioxide Level 22 mmol/L (21-32) Anion Gap 11 (6-14) Blood Urea Nitrogen 24 mg/dL (8-26) Creatinine 1.0 mg/dL (0.7-1.3) Estimated GFR (Cockcroft-Gault) 79.1 BUN/Creatinine Ratio 24 (6-20) H Glucose Level 155 mg/dL (70-99) H Calcium Level 9.8 mg/dL (8.5-10.1) Total Bilirubin 0.9 mg/dL (0.2-1.0) Aspartate Amino Transferase (AST) 23 U/L (15-37) Alanine Aminotransferase (ALT) 39 U/L (16-63) Alkaline Phosphatase 102 U/L (46-116) Total Protein 8.2 g/dL (6.4-8.2) Albumin 3.5 g/dL (3.4-5.0) Albumin/Globulin Ratio 0.7 (1.0-1.7) L Lipase 84 U/L (73-393) Urine Collection Type Unknown Urine Color Priya Urine Clarity Clear Urine pH 6.5 Urine Specific [place] 1.025 Urine Protein Negative mg/dL (NEG-TRACE) Urine Glucose (UA) Negative mg/dL (NEG) Urine Ketones (Stick) Trace mg/dL (NEG) Urine Blood Negative (NEG) Urine Nitrite Negative (NEG) Urine Bilirubin Negative (NEG) Urine Urobilinogen Dipstick 1.0 mg/dL (0.2 mg/dL) Urine Leukocyte Esterase Negative (NEG) Urine RBC 0 /HPF (0-2) Urine WBC 0 /HPF (0-4) Urine Squamous Epithelial Cells Few /LPF Urine Bacteria 0 /HPF (0-FEW) Urine Mucus Marked /LPF Urine Opiates Screen Pos (NEG) Urine Methadone Screen Neg (NEG) Urine Barbiturates Neg (NEG) Urine Phencyclidine Screen Neg (NEG) Urine Amphetamine/Methamphetamine Neg (NEG) Urine Benzodiazepines Screen Neg (NEG) Urine Cocaine Screen Neg (NEG) Urine Cannabinoids Screen Pos (NEG) Urine Ethyl Alcohol Neg (NEG) Laboratory Tests 10/02/18 05:00 Laboratory Tests 10/02/18 05:00 (ABEL WALLS DO) Lab Values Laboratory Tests Test 10/02/18 05:00 White Blood Count 19.1 x10^3/uL (4.0-11.0) H Red Blood Count 5.42 x10^6/uL (4.30-5.70) Hemoglobin 17.0 g/dL (13.0-17.5) Hematocrit 50.2 % (39.0-53.0) Mean Corpuscular Volume 93 fL (79-100) Mean Corpuscular Hemoglobin 31 pg (25-35) Mean Corpuscular Hemoglobin Concent 34 g/dL (31-37) Red Cell Distribution Width 14.1 % (11.5-14.5) Platelet Count 352 x10^3/uL (140-400) Neutrophils (%) (Auto) 80 % (31-73) H Lymphocytes (%) (Auto) 16 % (24-48) L Monocytes (%) (Auto) 3 % (0-9) Eosinophils (%) (Auto) 1 % (0-3) Basophils (%) (Auto) 0 % (0-3) Neutrophils # (Auto) 15.3 x10^3uL (1.8-7.7) H Lymphocytes # (Auto) 3.1 x10^3/uL (1.0-4.8) Monocytes # (Auto) 0.5 x10^3/uL (0.0-1.1) Eosinophils # (Auto) 0.1 x10^3/uL (0.0-0.7) Basophils # (Auto) 0.1 x10^3/uL (0.0-0.2) Platelet Estimate Pending Sodium Level 136 mmol/L (136-145) Potassium Level 4.5 mmol/L (3.5-5.1) Chloride Level 103 mmol/L (98-107) Carbon Dioxide Level 22 mmol/L (21-32) Anion Gap 11 (6-14) Blood Urea Nitrogen 24 mg/dL (8-26) Creatinine 1.0 mg/dL (0.7-1.3) Estimated GFR (Cockcroft-Gault) 79.1 BUN/Creatinine Ratio 24 (6-20) H Glucose Level 155 mg/dL (70-99) H Calcium Level 9.8 mg/dL (8.5-10.1) Total Bilirubin 0.9 mg/dL (0.2-1.0) Aspartate Amino Transferase (AST) 23 U/L (15-37) Alanine Aminotransferase (ALT) 39 U/L (16-63) Alkaline Phosphatase 102 U/L (46-116) Total Protein 8.2 g/dL (6.4-8.2) Albumin 3.5 g/dL (3.4-5.0) Albumin/Globulin Ratio 0.7 (1.0-1.7) L Lipase 84 U/L (73-393) Laboratory Tests 10/02/18 05:00 Laboratory Tests 10/02/18 05:00 (JEANMARIE COPPOLA DO) EKG EKG [] (JEANMARIE COPPOLA DO) Radiology/Procedures Radiology/Procedures [] (JEANMARIE COPPOLA DO) Course & Med Decision Making Course & Med Decision Making Pertinent Labs and Imaging studies reviewed. (See chart for details) ED course: Patient arrived, was placed in bed, in tolerated exam well. He had IV fluids administered as well as antiemetics. Laboratory testing as well as by mouth challenge is still pending as patient care is being endorsed to the daytime physician.[] (JEANMARIE COPPOLA DO) Course & Med Decision Making 0600- Sign out received from Dr. Coppola for patient with N/V and history of cyclic vomiting syndrome and chronic headaches. Patient seen and evaluated by myself. Patient tolerating PO ice chips in room. Abdomen non-peritoneal. Labs reviewed. WBC elevated. UDS positive for THC. Capsaicin cream applied. Patient now reporting headache similar to chronic headaches. Neurologically intact. Pain addressed. Patient advised to discontinue THC abuse as may be cause of cyclic vomiting. Patient stable for discharge with outpatient follow-up with PCP/GI. GI referral provided. Discussed findings and plan with patient, who acknowledges understanding and agreement. 0705- Upon discharge, patient reporting increased redness and burning to abdomen at site of capsiacan cream. Reports unable to tolerate. Patient washed with soap and water in sink and milk soaked washcloths. Patient advised to not fill prescription. (ABEL WALLS DO) Dragon Disclaimer Dragon Disclaimer This electronic medical record was generated, in whole or in part, using a voice recognition dictation system. (JEANMARIE COPPOLA DO) Departure Departure Impression: Primary Impression: Nausea vomiting and diarrhea Additional Impressions: Marijuana abuse Chronic headache Disposition: 01 HOME, SELF-CARE Condition: STABLE Referrals: Caity NOE MD (PCP) TEODORO BETANCUR MD Patient Instructions: Cyclic Vomiting Syndrome, Diarrhea, [id number], Diet for Diarrhea, Adult, Marijuana Abuse-Brief, Nausea and Vomiting, [id number], Recurrent Migraine Headache Scripts Ondansetron (ONDANSETRON ODT) 4 Mg Tab.rapdis 1 TAB PO PRN Q6-8HRS PRN for NAUSEA, #16 TAB Prov: ABEL WALLS DO 10/02/18 Capsaicin (CAPSAICIN) 60 Gm Cream..g. 1 YAHIR TP TID PRN PRN for PAIN, #1 EACH Prov: ABEL WALLS DO 10/02/18 Problem Qualifiers Additional Impressions: Chronic headache Headache type: unspecified Intractability: not intractable Qualified Codes : R51 - Headache JEANMARIE COPPOLA DO Oct 02, 2018 05:08 ABEL WALLS DO Oct 02, 2018 06:35
[2018-10-02 05:11] LABS: BASO # 0.1 x10^3/uL (0.0-0.2); BASO % 0 % (0-3); EOS # 0.1 x10^3/uL (0.0-0.7); EOS % 1 % (0-3); HEMATOCRIT 50.2 % (39.0-53.0); LYMPH # 3.1 x10^3/uL (1.0-4.8); LYMPH % 16 % (24-48); MEAN CORPUSCULAR HEMOGLOBIN 31 pg (25-35); MEAN CORPUSCULAR HGB CONC 34 g/dL (31-37); MEAN CORPUSCULAR VOLUME 93 fL (79-100); MONO # 0.5 x10^3/uL (0.0-1.1); MONO % 3 % (0-9); NEUT # 15.3 x10^3uL (1.8-7.7); NEUT % 80 % (31-73); PLATELET COUNT 352 x10^3/uL (140-400); RED BLOOD COUNT 5.42 x10^6/uL (4.30-5.70); RED CELL DISTRIBUTION WIDTH 14.1 % (11.5-14.5); WHITE BLOOD COUNT 19.1 x10^3/uL (4.0-11.0)
[2018-10-02 05:21] LABS: CALCIUM 9.8 mg/dL (8.5-10.1); GFR 79.1; POTASSIUM 4.5 mmol/L (3.5-5.1)
[2018-10-02 05:29] LABS: ALBUMIN 3.5 g/dL (3.4-5.0); ALBUMIN/GLOBULIN RATIO 0.7 (1.0-1.7); TOTAL BILIRUBIN 0.9 mg/dL (0.2-1.0); TOTAL PROTEIN 8.2 g/dL (6.4-8.2)
[2018-10-02 06:03] LABS: BILIRUBIN,URINE NEGATIVE (NEG); CLARITY,URINE CLEAR; COLOR,URINE AMBER; NITRITE,URINE NEGATIVE (NEG); PH,URINE 6.5; PROTEIN,URINE NEGATIVE (NEG-TRACE)
[2018-10-02 06:10] LABS: BARBITURATES NEG (NEG); BENZODIAZEPINES NEG (NEG); CANNABINOIDS POS (NEG); COCAINE NEG (NEG); METHADONE NEG (NEG); OPIATES POS (NEG); PHENCYCLIDINE NEG (NEG)
[2018-10-02 06:13] LABS: BACTERIA,URINE 0 /HPF (0-FEW); RBC,URINE 0 /HPF (0-2); SQUAMOUS EPITHELIAL CELL,UR FEW /LPF; WBC,URINE 0 /HPF (0-4)
[2018-10-02 06:15] LABS: AMPHETAMINE/METHAMPHETAMINE NEG (NEG)
[2018-10-02 06:30] LABS: PROTHROMBIN TIME PATIENT 12.6 SEC (11.7-14.0)
[2018-10-02] MEDS ORDERED: ONDA4TAB12 PO (06:35)
[2018-10-02] MEDS ORDERED: CAPS60CR2 TP (06:35)
[2018-10-02 06:47] VITALS: BP 141/118
[2018-10-02] MEDS ORDERED: CAPSAICIN 0.025% TOPICAL CREAM 60GM TUBE. TP ONE (07:00)
[2018-10-02] MEDS ORDERED: fentaNYL PF VIAL 100 MCG/2 ML VIAL IV ONE (07:00)
[2018-10-02 09:12] LABS: % BANDS 10 % (0-9); % BASOS 1 % (0-3); % LYMPHS 22 % (24-48); % MONOS 2 % (0-10); % SEGS 65 % (35-66); PLT ESTIMATE ADEQUATE (ADEQUATE)
[2018-10-03] MEDS ORDERED: ONDA4TAB7 PO ×2 (17:25→17:36)
[2018-10-03] MEDS ORDERED: LISI10TA2 PO (17:35)
== END 2018-10-02 07:29 | disposition home or self-care (01) ==
LOC: ER 03:48
DX: G43.909 Migraine, unspecified, not intractable, without status migrainosus (principal); F12.20 Cannabis dependence, uncomplicated; R11.2 Nausea with vomiting, unspecified; R19.7 Diarrhea, unspecified; Z93.3 Colostomy status; Z88.6 Allergy status to analgesic agent
CPT/HCPCS: 36415; 80053; 80307; 81001; 83690; 85007; 85025; 85610; 96361; 96374; 96375; 99284; J0780; J1885; J3010; J7030

== ENCOUNTER 2018-10-03 13:48 | Emergency (ER) | payer BC ==
[~2018-10-03] VITALS: Ht 175.3 cm; Wt 88.9 kg
[~2018-10-03 13:48] MED LIST changes: +CAPS60CR2 TP; +ONDA4TAB12 PO
--- NOTE | 2018-10-03 14:23 | RAD ---
EXAM: AP View of the chest DATE: 10/03/2018 1:55 PM INDICATION: CHEST PAIN, PALPITATIONS SINCE TODAY. HX OF PRE-HYPERTENSION COMPARISON: 10/20/2016 FINDINGS: Cardiomediastinal silhouette is stable. No focal parenchymal airspace opacity. No pleural effusion or pneumothorax. IMPRESSION: 1. No evidence for acute cardiopulmonary process. Electronically signed by: Anand Kaur MD (10/03/2018 2:18 PM) [facility]
[2018-10-03 14:31] LABS: BASO # 0.1 x10^3/uL (0.0-0.2); BASO % 1 % (0-3); EOS % 0 % (0-3); HEMATOCRIT 48.4 % (39.0-53.0); HEMOGLOBIN 16.5 g/dL (13.0-17.5); LYMPH # 3.9 x10^3/uL (1.0-4.8); LYMPH % 25 % (24-48); MEAN CORPUSCULAR HEMOGLOBIN 31 pg (25-35); MEAN CORPUSCULAR HGB CONC 34 g/dL (31-37); MEAN CORPUSCULAR VOLUME 91 fL (79-100); MONO # 0.9 x10^3/uL (0.0-1.1); MONO % 6 % (0-9); NEUT # 10.9 x10^3uL (1.8-7.7); NEUT % 69 % (31-73); PLATELET COUNT 363 x10^3/uL (140-400); RED CELL DISTRIBUTION WIDTH 13.9 % (11.5-14.5); WHITE BLOOD COUNT 15.9 x10^3/uL (4.0-11.0)
[2018-10-03] MEDS ORDERED: cloNIDine HCL 0.1 MG TABLET PO ONE (14:45)
[2018-10-03] MEDS ORDERED: MAGNESIUM SULFATE 1GM 100 ML IV ONE (14:45)
[2018-10-03 14:48] LABS: CREATININE 1.1 mg/dL (0.7-1.3); GFR 70.9; POTASSIUM 4.2 mmol/L (3.5-5.1)
[2018-10-03 14:54] LABS: ALBUMIN 3.6 g/dL (3.4-5.0); ALBUMIN/GLOBULIN RATIO 0.8 (1.0-1.7); TOTAL BILIRUBIN 0.8 mg/dL (0.2-1.0); TOTAL PROTEIN 8.3 g/dL (6.4-8.2)
--- NOTE | 2018-10-03 15:03 | EKG ---
[facility] [address] [place] [address] Test Date: 2018-10-03 Test Time: 13:57:42 Pat Name: MARIA DEL CARMEN SUAZO Department: Room: Gender: M Orchestrator: : 1970 Requested By: WEI NAVARRO Order Number: [id number] Reading MD: Scott Palencia MD Measurements Intervals Scotts Rate: 69 P: 26 WI: 120 QRS: 56 QRSD: 88 T: 52 QT: 374 QTc: 402 Interpretive Statements SINUS RHYTHM VENTRICULAR PREMATURE COMPLEX(ES) Electronically Signed On 10-05-2018 10:10:11 TECHNICAL APPLICATIONS SPECIALIST by Scott Palencia MD
[2018-10-03 15:05] LABS: MAGNESIUM 2.1 mg/dL (1.8-2.4)
--- NOTE | 2018-10-03 15:09 | PHYS DOC ---
Past Medical History Past Medical History: Diverticulitis, Migraines, Other Additional Past Medical Histor: chronic headaches; cyclic vomiting syndrome Past Surgical History: Other Additional Past Surgical Histo: colostomy and colostomy reversal Alcohol Use: None Drug Use: Marijuana, Opiates Adult General Chief Complaint Chief Complaint: Palpitations HPI HPI Patient is a 48 year old male with history of cyclic vomiting syndrome, chronic headaches who presents with persistent headache and elevated blood pressure after leaving the emergency department yesterday morning. Patient states he took his blood pressure but continues to have headache and complaints of palpitations today. Reports frequent skipped heartbeats no chest pain, shortness of breath, reports mild nausea no vomiting. No fever chills or sweats. No other acute symptoms or complaints.[] Review of Systems Review of Systems Review of symptoms as per history of present illness. All other systems were reviewed and found to be within normal limits, except as documented in this note. Current Medications Current Medications Current Medications Medications (Trade) Dose Ordered Sig/Alejandra Start Time Stop Time Status Last Admin Dose Admin Clonidine HCl (Catapres) 0.2 mg 1X ONCE 10/03/18 14:45 10/03/18 14:46 DC 10/03/18 14:55 0.2 MG Magnesium Sulfate/ Dextrose 100 ml @ 100 mls/hr 1X ONCE 10/03/18 14:45 10/03/18 15:44 DC 10/03/18 14:55 100 MLS/HR Ondansetron HCl (Zofran) 8 mg 1X ONCE 10/03/18 15:30 10/03/18 15:31 DC 10/03/18 15:33 8 MG Allergies Allergies Allergies Coded Allergies Type Severity Reaction Last Updated Verified aspirin Adverse Reaction Mild irritates stomach 12/01/17 Yes Physical Exam Physical Exam Constitutional: Well developed, well nourished, no acute distress, non-toxic appearance. [] HENT: Normocephalic, atraumatic, bilateral external ears normal, oropharynx moist, nose normal. [] Eyes: PERRLA, EOMI, conjunctiva normal, no discharge. [] Neck: Normal range of motion, no tenderness, supple. [] Cardiovascular:Heart rate regular rhythm, no murmur. [] Lungs & Thorax: Bilateral breath sounds clear to auscultation [] Abdomen: Bowel sounds normal, soft, no tenderness. [] Skin: Warm, dry, no erythema, no rash. [] Back: No tenderness. [] Extremities: No tenderness, no edema. [] Neurologic: Alert and oriented X 3, normal motor function, normal sensory function, no focal deficits noted. [] Psychologic: Affect normal, judgement normal, mood normal. [] Current Patient Data Vital Signs Vital Signs Date Time Temp Pulse Resp B/P (MAP) Pulse Ox O2 Delivery O2 Flow Rate FiO2 10/03/18 14:55 81 162/104 10/03/18 14:02 97.1 22 99 Room Air 97.1 Lab Values Laboratory Tests Test 10/03/18 14:20 10/03/18 16:40 White Blood Count 15.9 x10^3/uL (4.0-11.0) H Red Blood Count 5.30 x10^6/uL (4.30-5.70) Hemoglobin 16.5 g/dL (13.0-17.5) Hematocrit 48.4 % (39.0-53.0) Mean Corpuscular Volume 91 fL (79-100) Mean Corpuscular Hemoglobin 31 pg (25-35) Mean Corpuscular Hemoglobin Concent 34 g/dL (31-37) Red Cell Distribution Width 13.9 % (11.5-14.5) Platelet Count 363 x10^3/uL (140-400) Neutrophils (%) (Auto) 69 % (31-73) Lymphocytes (%) (Auto) 25 % (24-48) Monocytes (%) (Auto) 6 % (0-9) Eosinophils (%) (Auto) 0 % (0-3) Basophils (%) (Auto) 1 % (0-3) Neutrophils # (Auto) 10.9 x10^3uL (1.8-7.7) H Lymphocytes # (Auto) 3.9 x10^3/uL (1.0-4.8) Monocytes # (Auto) 0.9 x10^3/uL (0.0-1.1) Eosinophils # (Auto) 0.0 x10^3/uL (0.0-0.7) Basophils # (Auto) 0.1 x10^3/uL (0.0-0.2) Sodium Level 138 mmol/L (136-145) Potassium Level 4.2 mmol/L (3.5-5.1) Chloride Level 98 mmol/L (98-107) Carbon Dioxide Level 28 mmol/L (21-32) Anion Gap 12 (6-14) Blood Urea Nitrogen 21 mg/dL (8-26) Creatinine 1.1 mg/dL (0.7-1.3) Estimated GFR (Cockcroft-Gault) 70.9 BUN/Creatinine Ratio 19 (6-20) Glucose Level 96 mg/dL (70-99) Calcium Level 10.0 mg/dL (8.5-10.1) Magnesium Level 2.1 mg/dL (1.8-2.4) Total Bilirubin 0.8 mg/dL (0.2-1.0) Aspartate Amino Transferase (AST) 23 U/L (15-37) Alanine Aminotransferase (ALT) 37 U/L (16-63) Alkaline Phosphatase 94 U/L (46-116) Creatine Kinase 135 U/L (39-308) Troponin I Quantitative < 0.017 ng/mL (0.000-0.055) C-Reactive Protein, Quantitative 29.4 mg/L (0-3.3) H Total Protein 8.3 g/dL (6.4-8.2) H Albumin 3.6 g/dL (3.4-5.0) Albumin/Globulin Ratio 0.8 (1.0-1.7) L Thyroid Stimulating Hormone (TSH) 1.692 uIU/mL (0.358-3.74) Urine Opiates Screen Pos (NEG) Urine Methadone Screen Neg (NEG) Urine Barbiturates Neg (NEG) Urine Phencyclidine Screen Neg (NEG) Urine Amphetamine/Methamphetamine Neg (NEG) Urine Benzodiazepines Screen Neg (NEG) Urine Cocaine Screen Neg (NEG) Urine Cannabinoids Screen Neg (NEG) Urine Ethyl Alcohol Neg (NEG) Laboratory Tests 10/03/18 14:20 Laboratory Tests 10/03/18 14:20 EKG EKG [] Radiology/Procedures Radiology/Procedures [] Course & Med Decision Making Course & Med Decision Making Pertinent Labs and Imaging studies reviewed. (See chart for details) [Palpitations, headache improved with blood pressure control. States he feels much better and is no longer dizzy. Patient also noted to be mildly tachypneic or anxious on ED arrival which is also resolved. Recent review of labs shows persistent increase of elevated white blood cell count. Patient does have history of C. difficile and states he has had intermittent diarrhea for the past 3 days and is concerned that he is redeveloping C. difficile colitis. He is unable to right stool sample in the emergency department. We will send home with flask with instructions to follow-up with his PCP for outpatient testing. Recommend continued supportive care, blood pressure treatment and monitoring. Return precautions reviewed. Patient verbalizes understanding agreement discharge instructions prior to departure. Dragon Disclaimer Dragon Disclaimer This electronic medical record was generated, in whole or in part, using a voice recognition dictation system. Departure Departure Impression: Primary Impression: Headache Additional Impressions: Palpitations Accelerated hypertension Disposition: HOME, SELF-CARE Condition: IMPROVED Referrals: Caity NOE MD (PCP) Patient Instructions: Epidural Blood Patching in Spinal Headache, Hypertension , Palpitations, [id number] Additional Instructions: Take blood pressure medication upon leaving the emergency department. Take nausea medication as directed and follow-up with PCP early next week for reevaluation of skipped hear beats and hypertension and stool sample if diarrhea continues. Return to the ED if new or worsening symptoms. Scripts Ondansetron Hcl (ZOFRAN) 4 Mg Tablet 1 TAB PO Q6HRS, #10 TAB 0 Refills Prov: WEI NAVARRO DO 10/03/18 Problem Qualifiers WEI NAVARRO DO Oct 03, 2018 15:09
[2018-10-03] MEDS ORDERED: ONDANSETRON PF 4 MG/2 ML VIAL. IV ONE (15:30)
[2018-10-03 16:59] LABS: BARBITURATES NEG (NEG); BENZODIAZEPINES NEG (NEG); CANNABINOIDS NEG (NEG); COCAINE NEG (NEG); METHADONE NEG (NEG); OPIATES POS (NEG); PHENCYCLIDINE NEG (NEG)
[2018-10-03 17:09] LABS: AMPHETAMINE/METHAMPHETAMINE NEG (NEG)
[2018-10-03 17:15] VITALS: BP 153/91
[2018-10-03] MEDS ORDERED: ONDA4TAB7 PO ×2 (17:25→17:36)
[2018-10-03] MEDS ORDERED: LISI10TA2 PO (17:35)
== END 2018-10-03 17:41 | disposition home or self-care (01) ==
LOC: ER 13:48
DX: G43.909 Migraine, unspecified, not intractable, without status migrainosus (principal); I10 Essential (primary) hypertension; R00.2 Palpitations; Z93.3 Colostomy status; Z88.6 Allergy status to analgesic agent
CPT/HCPCS: 36415; 71045; 80053; 80307; 82550; 83735; 84443; 84484; 85025; 85651; 86140; 93005; 96365; 96375; 99284; J2405; J3475

== ENCOUNTER → 2019-03-31 | Outpatient (CLI) | payer BC ==
[~2019-03-31] MED LIST changes: -PANT40TA5 PO; +PANT40TA77 PO
--- NOTE | 2019-03-31 12:23 | RAD ---
EXAM: Right knee, 3 views. HISTORY: Pain. COMPARISON: 07/22/2018 FINDINGS: 3 views of the right knee are obtained. There is no fracture, dislocation or subluxation. No joint effusion is seen. IMPRESSION: No acute osseous finding. Electronically signed by: Kandis Camejo MD (03/31/2019 12:20 PM) [facility]
== END | disposition home or self-care (01) ==
LOC: LAB 11:38
PROVIDERS: ATTEND Family Medicine
DX: M25.561 Pain in right knee (principal)
CPT/HCPCS: 73562

== ENCOUNTER → 2019-06-02 | Outpatient (CLI) | payer BC ==
--- NOTE | 2019-06-02 12:48 | RAD ---
EXAM: Right hip, 2 views; right femur, 2 views. HISTORY: Pain. COMPARISON: None. FINDINGS: 2 views of the right hip and femur are obtained. There is no fracture, dislocation or subluxation. There is no lytic or sclerotic osseous lesion or periosteal reaction. There is decreased right femoral head-neck offset suggesting a component of chronic impingement. There is minimal degenerative change involving the lateral superior acetabulum. IMPRESSION: 1. No acute osseous finding. 2. Minimal right hip osteoarthritis and findings suggesting a component of chronic hip impingement. Electronically signed by: Kandis Camejo MD (06/02/2019 12:45 PM) [facility]
== END | disposition home or self-care (01) ==
LOC: RAD 11:44
PROVIDERS: ATTEND Family Medicine
DX: M16.11 Unilateral primary osteoarthritis, right hip (principal); M25.551 Pain in right hip
CPT/HCPCS: 73502; 73552

== ENCOUNTER 2020-11-27 21:33 | Emergency (ER) | payer BC ==
[~2020-11-27] VITALS: Ht 175.3 cm; Wt 90.5 kg
[~2020-11-27 21:33] MED LIST changes: +LISI10TA16 PO; -LISI10TA2 PO
[2020-11-27 22:05] VITALS: BP 153/94
--- NOTE | 2020-11-27 22:16 | PHYS DOC ---
Past Medical History Past Medical History: Diverticulitis, Migraines, Other Additional Past Medical Histor: chronic headaches; cyclic vomiting syndrome Past Surgical History: Other Additional Past Surgical Histo: colostomy and colostomy reversal Smoking Status: Current Every Day Smoker Alcohol Use: None Drug Use: Marijuana, Opiates General Adult EDM: Chief Complaint: FINGER INJURY HPI: HPI: Patient is a 50 year old male who presents with chief complaint of splinter in his left fifth digit. Patient reports working on some fencing this evening when a small piece broke off and went through the distal volar surface of his fifth digit. He initially tried to pull the splinter out from the site where the piece of wood emerged, but the tip broke off. He then used a knife to try to get to the edge of the splinter but was unsuccessful. He states that he can still feel the splinter through the skin. He denies any numbness, tingling, or other change in sensation. Last TdaP in 2014. Review of Systems: Review of Systems: Fourteen body systems of review of systems have been reviewed. See HPI for pertinent positives and negative responses, other montes all other systems are negative, non-pertinent or non-contributory Heart Score: C/O Chest Pain: No Risk Factors: Risk Factors: DM, Current or recent (<one month) smoker, HTN, HLP, family history of CAD, obesity. Risk Scores: Score 0 - 3: 2.5% MACE over next 6 weeks - Discharge Home Score 4 - 6: 20.3% MACE over next 6 weeks - Admit for Clinical Observation Score 7 - 10: 72.7% MACE over next 6 weeks - Early Invasive Strategies Allergies: Allergies: Allergies Coded Allergies Type Severity Reaction Last Updated Verified aspirin Adverse Reaction Mild irritates stomach 12/01/17 Yes Physical Exam: PE: Constitutional: Well developed, well nourished, no acute distress, non-toxic appearance. HENT: Normocephalic, atraumatic, bilateral external ears normal, oropharynx moist, no oral exudates, nose normal. Eyes: PERRLA, EOMI, conjunctiva normal, no discharge. Neck: Normal range of motion, no tenderness, supple, no stridor. Cardiovascular: Heart rate regular, sinus rhythm, no murmurs rubs or gallops Lungs & Thorax: Bilateral breath sounds clear to auscultation Abdomen: Bowel sounds normal, soft, no tenderness, no masses, no pulsatile masses. Nonsurgical abdomen, no peritoneal signs Skin: Warm, dry, no erythema, no rash. Back: No tenderness, no CVA tenderness. Extremities: No tenderness, no cyanosis, no clubbing, ROM intact, no edema. Cap refill in all digits of hand less than 3 seconds, bilateral radial pulses intact and 2+, medial radial and ulnar nerves intact, palpable splinter within palmar surface overlying DIP. No obvious site of entry. Self-made abrasion noted to lateral portion of left fingertip made by patient in attempt to pull out splinter Neurologic: Alert and oriented X 3, grossly normal motor & sensory function, no focal deficits noted. Psychologic: Affect normal, judgement normal, mood normal. Current Patient Data: Vital Signs: Vital Signs Date Time Temp Pulse Resp B/P (MAP) Pulse Ox O2 Delivery O2 Flow Rate FiO2 11/27/20 22:05 98.1 100 20 153/94 (113) 97 Room Air 98.1 EKG: EKG: [] Radiology/Procedures: Radiology/Procedures: [] Course & Med Decision Making: Course & Med Decision Making Patient with history and physical exam concerning for retained splinter in finger Efforts were made while in ER to extract this. Nonetheless, discussed more invasive intervention that is likely required in order to remove this. I disclosed that I was not a hand surgeon in the hand is a very sensitive area of the body with lots of nerve innervation, tendons etc. I discussed this is high risk Joint decision was made to pursue treatment with antibiotics to prevent secondary infection, tetanus vaccine was updated during this visit, patient has good access to care with PCP and can be seen in outpatient setting. Discussed likely need for hand surgeon referral for evaluation and extrication of splinter if it does not remove naturally. Strict return precautions were discussed with good understanding by patient, all questions and concerns addressed prior to your departure Dragon Disclaimer: Dragon Disclaimer: This electronic medical record was generated, in whole or in part, using a voice recognition dictation system. Departure Departure Impression: Primary Impression: Splinter in skin Disposition: 01 DC HOME SELF CARE/HOMELESS Condition: STABLE Referrals: Caity NOE MD (PCP) Additional Instructions: As discussed prior to ER departure, please take prescribed antibiotic daily as prescribed. Please call your primary care physician as instructed first thing in the morning to review ER visit today. You have an obvious retained splinter in your pinky finger, joint decision was made to defer extrication of this in ER setting to see a hand surgeon given sensitive/delicate nature of hand. Please do not hesitate to come back for repeat evaluation if symptoms worsen prior to outpatient follow-up. It was a pleasure to take care of you and I wish you the best going forward CASS NOGUEIRA DO Nov 27, 2020 22:15
[2020-11-28] MEDS ORDERED: CEPHALEXIN 250 MG CAPSULE. PO SCH (00:30)
[2020-11-28] MEDS ORDERED: DIPH,PERTUSS(ACELL),TET VAC/PF 0.5 ML SYRINGE. VAX IM ONE (00:30)
== END 2020-11-28 00:35 | disposition home or self-care (01) ==
LOC: ER 21:33
DX: S60.457A Superficial foreign body of left little finger, initial encounter (principal); G43.909 Migraine, unspecified, not intractable, without status migrainosus; F17.200 Nicotine dependence, unspecified, uncomplicated; F12.90 Cannabis use, unspecified, uncomplicated; F19.90 Other psychoactive substance use, unspecified, uncomplicated; Z90.89 Acquired absence of other organs; Z98.890 Other specified postprocedural states; W45.8XXA Other foreign body or object entering through skin, initial encounter; Y93.89 Activity, other specified; Y92.89 Other specified places as the place of occurrence of the external cause; Y99.8 Other external cause status
CPT/HCPCS: 90471; 90715; 99283

== ENCOUNTER → 2021-02-07 | Outpatient (CLI) | payer BC ==
--- NOTE | 2021-02-08 13:46 | CARD ---
MR#: [id number] Date of Study: 02/07/2021 Ordering Physician: FABI AVALOS, Referring Physician: FABI AVALOS, Tech: Orlando Munoz [facility] APPROVED REPORT EXAM: Two-dimensional and M-mode echocardiogram with Doppler and color Doppler. Other Information Quality : FairHR: 88bpm Rhythm : NSR INDICATION Pericardial Effusion Dyspnea RISK FACTORS Smoking 2D DIMENSIONS Left Atrium(2D)3.5 (1.6-4.0cm)IVSd0.8 (0.7-1.1cm) Aortic Root(2D)3.8 (2.0-3.7cm)LVDd4.1 (3.9-5.9cm) LVOT Diameter2.0 (1.8-2.4cm)PWd0.9 (0.7-1.1cm) LVDs2.5 (2.5-4.0cm)FS (%) 40.4 % SV54.7 mlLVEF(%)71.6 (>50%) Aortic Valve AoV Peak Alfred.119.8cm/sAoV VTI18.6cm AO Peak GR.5.7mmHgLVOT Peak Alfred.115.6cm/s AO Mean GR.3mmHgAVA (VMAX)3.06cm2 Mitral Valve MV E Modlhbbj16.7cm/sMV E Peak Gr.3mmHg MV DECEL [id number] A Xcbxibnc33.3cm/s MV E Mean Gr.1mmHgE/A Ratio0.6 Pulmonary Valve PV Peak Haatnehq95.4cm/s Tricuspid Valve TR P. Ycqocagg521kq/sTR Peak Gr.11mmHg LEFT VENTRICLE The left ventricle is normal size. There is normal left ventricular wall thickness. The left ventricu lar systolic function is normal. The ejection fraction is 55-60%. There is normal LV segmental wall m otion. The left ventricular diastolic function and filling is normal for age. No left ventricle throm bus noted on this study. There is no ventricular septal defect visualized. RIGHT VENTRICLE The right ventricle is normal size. There is normal right ventricular wall thickness. The right ventr icular systolic function is normal. ATRIA The left atrium is mildly dilated. The right atrium size is normal. The interatrial septum is intact with no evidence for an atrial septal defect or patent foramen ovale as noted on 2-D or Doppler imagi ng. AORTIC VALVE The aortic valve is normal in structure and function. Doppler and Color Flow revealed no significant aortic regurgitation. There is no significant aortic valvular stenosis. There is no aortic valvular v egetation. MITRAL VALVE The mitral valve is normal in structure and function. There is no evidence of mitral valve prolapse. There is no mitral valve stenosis. Doppler and Color-flow revealed trace mitral regurgitation. TRICUSPID VALVE The tricuspid valve is normal in structure and function. Doppler and Color Flow revealed trace tricus pid regurgitation. There is no tricuspid valve prolapse or vegetation. There is no tricuspid valve st enosis. PULMONIC VALVE The pulmonary valve is normal in structure and function. Doppler and Color Flow revealed no pulmonic valvular regurgitation. There is no pulmonic valvular stenosis. GREAT VESSELS The aortic root is normal in size. The ascending aorta is normal in size. The pulmonary artery is nor mal. PERICARDIAL EFFUSION There is no pleural effusion. There is no evidence of significant pericardial effusion. Critical Notification Critical Value: No <Conclusion> The left ventricular systolic function is normal. The ejection fraction is 55-60%. There is normal LV segmental wall motion. Trace mitral regurgitation. Trace tricuspid regurgitation. There is no evidence of significant pericardial effusion. Signed by : Shahzad Martinez, Electronically Approved : 02/08/2021 13:46:23
== END ==
LOC: ECHO 14:56
PROVIDERS: ATTEND Internal Medicine Cardiovascular Disease
DX: R06.00 Dyspnea, unspecified (principal)
CPT/HCPCS: 93306

== ENCOUNTER → 2021-04-26 | Outpatient (CLI) | payer BC ==
--- NOTE | 2021-04-29 10:54 | RAD ---
MR#: [id number] Date of Study: 04/26/2021 Ordering Physician: FABI AVALOS, Referring Physician: PRERNA SANCHEZ Tech: RT Herberth (R) (N) APPROVED REPORT Test Type: Exercise Stress Nurse/Tech: Dashawn Zuñiga RN Test Indications: dyspnea on exertion, elevated heart rate Cardiac History: HTN, smoker Medications: See Electronic Medical Record Medical History: See Electronic Medical Record Resting ECG: SR Resting Heart Rate: 82 bpm Resting Blood Pressure: 116/79mmHg Pretest Chest Pain: None Nurse/Tech Notes Lungs CTA, S1S2 Consent: The procedure was explained to the patient in lay terms. Informed consent was witnessed. Vamshi eout was entered into [employer]. History and Stress Test performed by CONSTANTINO Moreno, MOLLY (R) (N) Stress Symptoms No chest pain or symptoms. POST EXERCISE Reason for Termination: Reached target heart rate Target HR: Yes Max HR: 144 bpm 123% of Maximum Predicted HR: 141 bpm Exercise duration: 9:37 min:sec, Stage Exercise capacity: 10METs Max Blood Pressure: 144/71mmHg Blood Pressure response to exercise: Normal blood pressure response during stress. Heart Rate response to exercise: normal response Chest Pain: No. Arrhythmia: No. ST Change: No. INTERPRETATION Stress EKG Conclusion: No evidence of stress induced EKG changes. Imaging Protocol IMAGE PROTOCOL: Rest Tc-99m/stress Tc-99m 1 day Rest: Stress: Viability: Radiopharm.Tc99m SnycytuxpZk25y Sestamibi Dose10.3mCi 31mCi Duration 15min. 10min. Img Date 04/26/2021 04/26/2021 Inj-Img Xaef79wux. 60min. Rest Admin Site:IV - Right WristAdministrator:CONSTANTINO Moreno ARRT (R)(N) Stress Admin Site: IV - Right WristAdministrator: CONSTANTINO Moreno, MOLLY (R)(N) STRESS DATA End Diast. Vol.52.0mlAv. Heart Yffb789.0bpm End Syst. Vol.6.0mlCO Index BSA0.0L/min Myocardial Bkrf202.0gEject. Afzlkeiq63.0% Stress Rates Pk. Fill Rate5.04EDV/secLVtime Pk. Fill 160.72msec Pk. Empty Rate7.22ESV/secLVtime Pk. Tpliv120.77msec 1/3 Pk. Fill1.84EDV/sec Stress Scores Regional WT0.00Summed WT1.00 Regional WM0.00Summed WM0.00 The rest and stress images show normal perfusion, normal contraction and thickening. LV Perf. Quant 17 Seg. SSS0.00 17 Seg. SRS2.00 17 Seg. SDS0.00 Stress Defect Extent (% LAD)0.00Rest Defect Extent (% LAD)0.00Rev. Defect Extent (% LAD)0.00 Stress Defect Extent (% LCX) 0.00Rest Defect Extent (% LCX)0.00Rev. Defect Extent (% LCX)0.00 Stress Defect Extent (% RCA)0.00Rest Defect Extent (% RCA)0.00Rev. Defect Extent (% RCA)0.00 Stress Defect Extent (% KVNG)0.00Rest Defect Extent (% KVNG)0.00Rev. Defect Extent (% KVNG)0.00 Other Information Quality:Average Risk Assessment: Low Risk Conclusion 1. No evidence of EKG changes with stress testing. 2. Normal perfusion at stress/rest. 3. Low risk study. 4. EF > 60%. Signed by : Scott Palencia, Electronically Approved : 04/29/2021 10:53:26
== END ==
LOC: NM 10:02
PROVIDERS: ATTEND Internal Medicine Cardiovascular Disease
DX: R06.00 Dyspnea, unspecified (principal)
CPT/HCPCS: 78452; 93017; A9500

== ENCOUNTER 2022-01-17 12:48 | Emergency (ER) | payer BC ==
[~2022-01-17] VITALS: Ht 175.3 cm; Wt 88.6 kg
[~2022-01-17 12:48] MED LIST changes: +CYCL10TA19 PO; -CYCL10TA2 PO
[2022-01-17] MEDS ORDERED: FAMOTIDINE 20 MG/2 ML VIAL IVP ONE (13:00)
[2022-01-17] MEDS ORDERED: PROCHLORPERAZINE 10 MG/2 ML VIAL. IV ONE (13:00)
[2022-01-17 13:40] LABS: BASO # 0.1 x10^3/uL (0.0-0.2); BASO % 1 % (0-3); EOS % 0 % (0-3); HEMATOCRIT 45.6 % (39.0-53.0); HEMOGLOBIN 15.7 g/dL (13.0-17.5); LYMPH # 2.7 x10^3/uL (1.0-4.8); LYMPH % 20 % (24-48); MEAN CORPUSCULAR HEMOGLOBIN 31 pg (25-35); MEAN CORPUSCULAR HGB CONC 34 g/dL (31-37); MEAN CORPUSCULAR VOLUME 90 fL (79-100); MONO # 0.8 x10^3/uL (0.0-1.1); MONO % 6 % (0-9); NEUT # 9.8 x10^3/uL (1.8-7.7); NEUT % 73 % (31-73); PLATELET COUNT 386 x10^3/uL (140-400); RED BLOOD COUNT 5.08 x10^6/uL (4.30-5.70); RED CELL DISTRIBUTION WIDTH 14.1 % (11.5-14.5); WHITE BLOOD COUNT 13.4 x10^3/uL (4.0-11.0)
[2022-01-17 13:49] LABS: CALCIUM 9.8 mg/dL (8.5-10.1); CREATININE 1.3 mg/dL (0.7-1.3); GFR 57.7; POTASSIUM 3.5 mmol/L (3.5-5.1)
[2022-01-17 13:54] LABS: ALBUMIN 3.8 g/dL (3.4-5.0); ALBUMIN/GLOBULIN RATIO 0.8 (1.0-1.7); TOTAL BILIRUBIN 0.7 mg/dL (0.2-1.0); TOTAL PROTEIN 8.5 g/dL (6.4-8.2)
[2022-01-17] MEDS ORDERED: ONDANSETRON PF 4 MG/2 ML VIAL. IVP ONE ×2 (14:30→15:00)
[2022-01-17] MEDS ORDERED: diphenhydrAMINE 50 MG/ML VIAL IVP ONE (14:30)
[2022-01-17] MEDS ORDERED: IV NORMAL SALINE 1000ML BAG 1,000 ML IV ONE (15:30)
[2022-01-17] MEDS ORDERED: fentaNYL PF VIAL 100 MCG/2 ML VIAL IVP ONE (16:15)
[2022-01-17 16:30] VITALS: BP 153/78
--- NOTE | 2022-01-17 16:45 | PHYS DOC ---
Past Medical History Past Medical History: Diverticulitis, Migraines, Other Additional Past Medical Histor: cyclic vomiting syndrome Past Surgical History: Other Additional Past Surgical Histo: colostomy and colostomy reversal Smoking Status: Current Every Day Smoker Alcohol Use: None Drug Use: Marijuana, Opiates General Adult EDM: Chief Complaint: NAUSEA/VOMITING/DIARRHEA HPI: HPI: Patient is a 51 year old male with past medical history that includes cyclic vomiting syndrome and marijuana use who presents with nausea and vomiting. Patient states that he has felt this way for approximately 3 hours without significant symptom relief. Patient is actively retching on arrival, but has not produced any vomitus. Patient denies fever, chills, generalized weakness, hematemesis, diarrhea. Review of Systems: Review of Systems: Constitutional: See HPI Eyes: Denies change in visual acuity, visual field deficits or discharge HENT: Denies ear pain, nasal congestion or sore throat Respiratory: Denies cough or shortness of breath Cardiovascular: Denies chest pain, palpitations or edema GI: See HPI : Denies dysuria or hematuria Musculoskeletal: Denies back pain or joint pain Integument: Denies rash or other skin lesion Neurologic: Denies headache, focal weakness or sensory changes Heart Score: C/O Chest Pain: No Current Medications: Current Medications Medications (Trade) Dose Ordered Sig/Alejandra Start Time Stop Time Status Last Admin Dose Admin Diphenhydramine HCl (Benadryl) 25 mg 1X ONCE 01/17/22 14:30 01/17/22 14:32 DC 01/17/22 14:48 25 MG Famotidine (Pepcid Vial) 20 mg 1X ONCE 01/17/22 13:00 01/17/22 13:01 DC 01/17/22 13:33 20 MG Fentanyl Citrate (Fentanyl 2ml Vial) 50 mcg 1X ONCE 01/17/22 16:15 01/17/22 16:16 DC 01/17/22 16:12 50 MCG Ondansetron HCl (Zofran) 4 mg 1X ONCE 01/17/22 15:00 01/17/22 15:03 DC 01/17/22 15:10 4 MG Prochlorperazine Edisylate (Compazine) 10 mg 1X ONCE 01/17/22 13:00 01/17/22 13:01 DC 01/17/22 13:33 10 MG Sodium Chloride 1,000 ml @ 1,000 mls/hr 1X ONCE 01/17/22 15:30 01/17/22 16:29 DC 01/17/22 15:30 1,000 MLS/HR Allergies: Allergies: Allergies Coded Allergies Type Severity Reaction Last Updated Verified aspirin Adverse Reaction Mild irritates stomach 12/01/17 Yes Physical Exam: PE: Constitutional: Well developed, well nourished, no acute distress, non-toxic appearance. HENT: Normocephalic, atraumatic, bilateral external ears normal, nose normal. Eyes: EOMI, conjunctiva normal, no discharge. Neck: Normal range of motion, no stridor. Abdomen: Bowel sounds normal, soft, diffuse tenderness without rebound or gua rding, no masses, no pulsatile masses. Skin: Warm, dry, no erythema, no rash. Extremities: No tenderness, no cyanosis, no clubbing, ROM intact, no edema. Neurologic: Alert and oriented x4, normal motor function, normal sensory func tion, no focal deficits noted. Current Patient Data: Labs: Laboratory Tests Test 01/17/22 13:27 White Blood Count 13.4 x10^3/uL (4.0-11.0) H Red Blood Count 5.08 x10^6/uL (4.30-5.70) Hemoglobin 15.7 g/dL (13.0-17.5) Hematocrit 45.6 % (39.0-53.0) Mean Corpuscular Volume 90 fL (79-100) Mean Corpuscular Hemoglobin 31 pg (25-35) Mean Corpuscular Hemoglobin Concent 34 g/dL (31-37) Red Cell Distribution Width 14.1 % (11.5-14.5) Platelet Count 386 x10^3/uL (140-400) Neutrophils (%) (Auto) 73 % (31-73) Lymphocytes (%) (Auto) 20 % (24-48) L Monocytes (%) (Auto) 6 % (0-9) Eosinophils (%) (Auto) 0 % (0-3) Basophils (%) (Auto) 1 % (0-3) Neutrophils # (Auto) 9.8 x10^3/uL (1.8-7.7) H Lymphocytes # (Auto) 2.7 x10^3/uL (1.0-4.8) Monocytes # (Auto) 0.8 x10^3/uL (0.0-1.1) Eosinophils # (Auto) 0.0 x10^3/uL (0.0-0.7) Basophils # (Auto) 0.1 x10^3/uL (0.0-0.2) Sodium Level 137 mmol/L (136-145) Potassium Level 3.5 mmol/L (3.5-5.1) Chloride Level 102 mmol/L (98-107) Carbon Dioxide Level 21 mmol/L (21-32) Anion Gap 14 (6-14) Blood Urea Nitrogen 14 mg/dL (8-26) Creatinine 1.3 mg/dL (0.7-1.3) Estimated GFR (Cockcroft-Gault) 57.7 BUN/Creatinine Ratio 11 (6-20) Glucose Level 176 mg/dL (70-99) H Calcium Level 9.8 mg/dL (8.5-10.1) Total Bilirubin 0.7 mg/dL (0.2-1.0) Aspartate Amino Transferase (AST) 18 U/L (15-37) Alanine Aminotransferase (ALT) 22 U/L (16-63) Alkaline Phosphatase 102 U/L (46-116) Total Protein 8.5 g/dL (6.4-8.2) H Albumin 3.8 g/dL (3.4-5.0) Albumin/Globulin Ratio 0.8 (1.0-1.7) L Lipase 50 U/L (73-393) L Laboratory Tests 01/17/22 13:27 Laboratory Tests 01/17/22 13:27 Vital Signs: Vital Signs Date Time Temp Pulse Resp B/P (MAP) Pulse Ox O2 Delivery O2 Flow Rate FiO2 01/17/22 16:30 85 18 153/78 (103) 99 01/17/22 16:12 14 99 Room Air 01/17/22 15:30 78 20 157/84 (108) 99 Room Air 01/17/22 14:30 80 22 161/87 (111) 99 Room Air 01/17/22 13:38 78 18 147/99 (115) 99 Room Air 01/17/22 12:48 97.8 77 22 140/76 (97) 99 Room Air 97.8 Course & Med Decision Making: Course & Med Decision Making Pertinent Labs and Imaging studies reviewed. (See chart for details) Patient is a 51-year-old male who presents with nausea and vomiting for the past few hours. Patient was given Compazine as well as 2 doses of Zofran and IV fluids. On reevaluation, patient states that he is feeling better, though sore from retching. Patient states he has Zofran at home. I advised that he also take Pepcid and adhere to a liquid diet until he is able to tolerate more by mouth. All the patient's questions were answered. Return precautions were provided. Patient understands and is agreeable to discharge plan. Dragon Disclaimer: [facility] Disclaimer: This electronic medical record was generated, in whole or in part, using a voice recognition dictation system. Departure Departure Impression: Primary Impression: Cannabinoid hyperemesis syndrome Disposition: HOME / SELF CARE / HOMELESS Condition: IMPROVED Referrals: Caity NOE MD (PCP) Patient Instructions: Nausea and Vomiting, [id number] Additional Instructions: EMERGENCY DEPARTMENT GENERAL DISCHARGE INSTRUCTIONS Thank you for coming to [facility] Emergency Department (ED) today and trusting us with you care. We trust that you had a positive experience in our Emergency Department. If you wish to speak to the department management, you may call the director at . YOUR FOLLOW UP INSTRUCTIONS ARE FOLLOWS: 1. Follow up with your primary care doctor. If you do not have a primary doct or, please ask for a resource list of physicians or clinics that may be able to assist you with follow up care. 2. The emergency provider has interpreted your imaging studies, if any were ordered. The radiology fire fighting equipment specialist also reviewed them. If there is a change in the findings, you will be notified in 48 hours when at all possible. 3. If a lab test or culture has been done, your results will be reviewed and you will be notified if you need a change in treatment. 4. Follow instructions verbalized to you and refer to the printouts if needed. ADDITIONAL INSTRUCTIONS AND INFORMATION: 1. Your care today has been supervised by a physician who is specially trained in emergency care. Many problems require more than one evaluation for a complete diagnosis and treatment. We recommend that you schedule your follow up appointment as recommended to ensure complete treatment of you illness or injury. If you are unable to obtain follow up care and continue to have a problem, or if your condition worsens, we recommend that you return to the ED. 2. We are not able to safely determine your condition over the phone nor are we able to give sound medical advice over the phone. For these safety reasons, if you call for medical advice we will ask you to come to the ED for further e valuation. 3. If you have any questions regarding these discharge instructions please call the ED at . SAFETY INFORMATION: In the interest of safety, wellness, and injury prevention; we encourage you to wear your seat belt, if you smoke; quite smoking, and we encourage family to use a protective helmet for bicycling and other sporting events that present an increased risk for head injury. IF YOUR SYMPTOMS WORSEN OR NEW SYMPTOMS DEVELOP, OR YOU HAVE CONCERNS ABOUT YOUR CONDITION; OR IF YOUR CONDITION WORSENS WHILE YOU ARE WAITING FOR YOUR FOLLOW UP APPOINTMENT; EITHER CONTACT YOUR PRIMARY CARE DOCTOR, THE PHYSICIAN WHOSE NAME AND NUMBER YOU WERE GIVEN, OR RETURN TO THE ED IMMEDIATELY. DELMA ADAME January 17, 2022 16:45
[2022-01-23] MEDS ORDERED: DICL150D9 TP (16:41)
[2022-01-23] MEDS ORDERED: AMIT100T PO (16:41)
[2022-01-23] MEDS ORDERED: CYCL10TA19 PO (16:41)
[2022-01-23] MEDS ORDERED: OXYC15TA3 PO (16:41)
== END 2022-01-17 16:45 | disposition home or self-care (01) ==
LOC: ER 12:48
DX: R11.2 Nausea with vomiting, unspecified (principal); F12.10 Cannabis abuse, uncomplicated; G43.909 Migraine, unspecified, not intractable, without status migrainosus; F17.200 Nicotine dependence, unspecified, uncomplicated; F11.10 Opioid abuse, uncomplicated; Z88.6 Allergy status to analgesic agent
CPT/HCPCS: 36415; 80053; 83690; 85025; 96361; 96374; 96375; 96376; 99285; J0780; J1200; J2405; J3010; J3490; J7030

== ENCOUNTER 2022-01-28 16:15 | Emergency (ER) | payer BC ==
[~2022-01-28] VITALS: Ht 175.3 cm; Wt 90.0 kg
[~2022-01-28 16:15] MED LIST changes: +AMIT100T PO; +DICL150D9 TP; +OXYC15TA3 PO
[2022-01-28] MEDS ORDERED: IV RINGERS,LACTATED 500ML 500 ML IV ONE ×2 (17:15)
[2022-01-28] MEDS ORDERED: HALOPERIDOL LACTATE 5 MG/ML VIAL. IVP ONE (17:15)
[2022-01-28] MEDS ORDERED: diphenhydrAMINE 50 MG/ML VIAL IVP ONE (17:15)
[2022-01-28] MEDS ORDERED: HYDROmorphone 2 MG/ML INJ. IVP ONE ×2 (17:15→18:45)
[2022-01-28] MEDS ORDERED: METOCLOPRAMIDE HCL 10 MG/2 ML VIAL. IVP ONE (17:15)
[2022-01-28 17:28] LABS: BASO # 0.1 x10^3/uL (0.0-0.2); BASO % 0 % (0-3); EOS # 0.1 x10^3/uL (0.0-0.7); EOS % 1 % (0-3); HEMATOCRIT 44.5 % (39.0-53.0); LYMPH # 2.1 x10^3/uL (1.0-4.8); LYMPH % 13 % (24-48); MEAN CORPUSCULAR HEMOGLOBIN 31 pg (25-35); MEAN CORPUSCULAR HGB CONC 34 g/dL (31-37); MEAN CORPUSCULAR VOLUME 90 fL (79-100); MONO % 6 % (0-9); NEUT # 13.3 x10^3/uL (1.8-7.7); NEUT % 80 % (31-73); PLATELET COUNT 417 x10^3/uL (140-400); RED BLOOD COUNT 4.92 x10^6/uL (4.30-5.70); RED CELL DISTRIBUTION WIDTH 14.1 % (11.5-14.5); WHITE BLOOD COUNT 16.6 x10^3/uL (4.0-11.0)
[2022-01-28 17:43] LABS: CALCIUM 9.6 mg/dL (8.5-10.1); GFR 77.9; POTASSIUM 3.9 mmol/L (3.5-5.1)
[2022-01-28 17:49] LABS: ALBUMIN 3.1 g/dL (3.4-5.0); ALBUMIN/GLOBULIN RATIO 0.6 (1.0-1.7); TOTAL BILIRUBIN 0.6 mg/dL (0.2-1.0)
[2022-01-28 18:07] LABS: INFLUENZA A PATIENT NEGATIVE (NEGATIVE); INFLUENZA B PATIENT NEGATIVE (NEGATIVE)
--- NOTE | 2022-01-28 18:41 | PHYS DOC ---
Past Medical History Past Medical History: Diverticulitis, Migraines, Other Additional Past Medical Histor: chronic back pain Past Surgical History: No Surgical History Additional Past Surgical Histo: colostomy and colostomy reversal Smoking Status: Current Every Day Smoker Alcohol Use: None Drug Use: Marijuana, Opiates General Adult EDM: Chief Complaint: NAUSEA/VOMITING/DIARRHEA HPI: HPI: Patient is a 52-year-old male with a history of chronic back pains and cyclic vomiting syndrome reports having nausea and vomiting since running out of his OxyContin last night. Patient reports vomiting too many times to count, reports yellow color vomitus, denies seeing blood in his vomitus. Patient denies fever or chills, denies chest pains, denies other physical complaints or physical concerns. Review of Systems: Review of Systems: 14 body systems of review of systems have been reviewed. See HPI for pertinent positives and negative responses, otherwise all other systems are negative, nonpertinent or noncontributory. Constitutional: Negative except as outlined in HPI above. Skin: Negative except as outlined in HPI above. Eyes: Negative except as outlined in HPI above. HENT: Negative except as outlined in HPI above. Respiratory: Negative except as outlined in HPI above. Cardiovascular: Negative except as outlined in HPI above. GI: Negative except as outlined in HPI above. : Negative except as outlined in HPI above. Musculoskeletal: Negative except as outlined in HPI above. Integument: Negative except as outlined in HPI above. Neurologic: Negative except as outlined in HPI above. Endocrine: Negative except as outlined in HPI above. Lymphatic: Negative except as outlined in HPI above. Psychiatric: Negative except as outlined in HPI above. Heart Score: C/O Chest Pain: No Risk Factors: Risk Factors: DM, Current or recent (<one month) smoker, HTN, HLP, family history of CAD, obesity. Risk Scores: Score 0 - 3: 2.5% MACE over next 6 weeks - Discharge Home Score 4 - 6: 20.3% MACE over next 6 weeks - Admit for Clinical Observation Score 7 - 10: 72.7% MACE over next 6 weeks - Early Invasive Strategies Current Medications: Current Medications Medications (Trade) Dose Ordered Sig/Alejandra Start Time Stop Time Status Last Admin Dose Admin Diphenhydramine HCl (Benadryl) 50 mg 1X ONCE 01/28/22 17:15 01/28/22 17:16 DC 01/28/22 17:15 50 MG Haloperidol Lactate (Haldol Inj) 5 mg 1X ONCE 01/28/22 17:15 01/28/22 17:16 DC 01/28/22 17:15 5 MG Hydromorphone HCl (Dilaudid) 0.5 mg 1X ONCE 01/28/22 17:15 01/28/22 17:16 DC 01/28/22 17:15 0.5 MG Metoclopramide HCl (Reglan Vial) 10 mg 1X ONCE 01/28/22 17:15 01/28/22 17:16 DC 01/28/22 17:15 10 MG Ringer's Solution 500 ml @ 500 mls/hr 1X ONCE 01/28/22 17:15 01/28/22 18:14 DC 01/28/22 17:15 500 MLS/HR Allergies: Allergies: Allergies Coded Allergies Type Severity Reaction Last Updated Verified aspirin Adverse Reaction Mild irritates stomach 12/01/17 Yes Physical Exam: PE: Constitutional: Well developed, well nourished, no acute distress, non-toxic appearance. 52-year-old male appears uncomfortable otherwise in no apparent distress. HENT: Normocephalic, atraumatic. Oropharynx is moist, pink, no deep tissue infectious process appreciated, normal dentition, patient has normal phonation, no lymphadenopathy of head or neck appreciated. Eyes: Conjunctiva normal, no discharge. Neck: Normal range of motion, no stridor. No meningismus signs, no nuchal rigidity. Cardiovascular: No cyanosis appreciated, distal cap refill less than 2 seconds. Lungs & Thorax: Patient is in no respiratory distress, no audible adventitious lung sounds appreciated. Abdomen: Nontender, no abnormalities noted. Skin: Warm, dry, no erythema, no rash. Back: No tenderness, no deformities. Extremities: No tenderness, no cyanosis, no clubbing, ROM intact, no edema. Neurologic: Alert and oriented X 3, normal motor function, normal sensory function, no focal deficits noted. Psychologic: Affect normal, judgement normal, mood normal. Current Patient Data: Labs: Laboratory Tests Test 01/28/22 17:20 01/28/22 17:45 White Blood Count 16.6 x10^3/uL Red Blood Count 4.92 x10^6/uL Hemoglobin 15.0 g/dL Hematocrit 44.5 % Mean Corpuscular Volume 90 fL Mean Corpuscular Hemoglobin 31 pg Mean Corpuscular Hemoglobin Concent 34 g/dL Red Cell Distribution Width 14.1 % Platelet Count 417 x10^3/uL Neutrophils (%) (Auto) 80 % Lymphocytes (%) (Auto) 13 % Monocytes (%) (Auto) 6 % Eosinophils (%) (Auto) 1 % Basophils (%) (Auto) 0 % Neutrophils # (Auto) 13.3 x10^3/uL Lymphocytes # (Auto) 2.1 x10^3/uL Monocytes # (Auto) 1.0 x10^3/uL Eosinophils # (Auto) 0.1 x10^3/uL Basophils # (Auto) 0.1 x10^3/uL Sodium Level 137 mmol/L Potassium Level 3.9 mmol/L Chloride Level 102 mmol/L Carbon Dioxide Level 21 mmol/L Anion Gap 14 Blood Urea Nitrogen 11 mg/dL Creatinine 1.0 mg/dL Estimated GFR (Cockcroft-Gault) 77.9 BUN/Creatinine Ratio 11 Glucose Level 109 mg/dL Calcium Level 9.6 mg/dL Total Bilirubin 0.6 mg/dL Aspartate Amino Transf (AST/SGOT) 36 U/L Alanine Aminotransferase (ALT/SGPT) 31 U/L Alkaline Phosphatase 98 U/L Total Protein 8.0 g/dL Albumin 3.1 g/dL Albumin/Globulin Ratio 0.6 Lipase 39 U/L Influenza Type A Antigen Negative Influenza Type B Antigen Negative SARS-CoV-2 Antigen (Rapid) Negative Current Medications Medications (Trade) Dose Ordered Sig/Alejandra Route PRN Reason Start Time Stop Time Status Last Admin Dose Admin Haloperidol Lactate (Haldol Inj) 5 mg 1X ONCE IVP 01/28/22 17:15 01/28/22 17:16 DC 01/28/22 17:15 5 MG Hydromorphone HCl (Dilaudid) 0.5 mg 1X ONCE IVP 01/28/22 17:15 01/28/22 17:16 DC 01/28/22 17:15 0.5 MG Diphenhydramine HCl (Benadryl) 50 mg 1X ONCE IVP 01/28/22 17:15 01/28/22 17:16 DC 01/28/22 17:15 50 MG Metoclopramide HCl (Reglan Vial) 10 mg 1X ONCE IVP 01/28/22 17:15 01/28/22 17:16 DC 01/28/22 17:15 10 MG Ringer's Solution 500 ml @ 500 mls/hr 1X ONCE IV 01/28/22 17:15 01/28/22 18:14 DC 01/28/22 17:15 500 MLS/HR Ringer's Solution 500 ml @ 500 mls/hr 1X ONCE IV 01/28/22 17:15 01/28/22 18:14 DC 01/28/22 17:15 500 MLS/HR Laboratory Tests Test 01/28/22 17:20 01/28/22 17:45 White Blood Count 16.6 x10^3/uL (4.0-11.0) H Red Blood Count 4.92 x10^6/uL (4.30-5.70) Hemoglobin 15.0 g/dL (13.0-17.5) Hematocrit 44.5 % (39.0-53.0) Mean Corpuscular Volume 90 fL (79-100) Mean Corpuscular Hemoglobin 31 pg (25-35) Mean Corpuscular Hemoglobin Concent 34 g/dL (31-37) Red Cell Distribution Width 14.1 % (11.5-14.5) Platelet Count 417 x10^3/uL (140-400) H Neutrophils (%) (Auto) 80 % (31-73) H Lymphocytes (%) (Auto) 13 % (24-48) L Monocytes (%) (Auto) 6 % (0-9) Eosinophils (%) (Auto) 1 % (0-3) Basophils (%) (Auto) 0 % (0-3) Neutrophils # (Auto) 13.3 x10^3/uL (1.8-7.7) H Lymphocytes # (Auto) 2.1 x10^3/uL (1.0-4.8) Monocytes # (Auto) 1.0 x10^3/uL (0.0-1.1) Eosinophils # (Auto) 0.1 x10^3/uL (0.0-0.7) Basophils # (Auto) 0.1 x10^3/uL (0.0-0.2) Sodium Level 137 mmol/L (136-145) Potassium Level 3.9 mmol/L (3.5-5.1) Chloride Level 102 mmol/L (98-107) Carbon Dioxide Level 21 mmol/L (21-32) Anion Gap 14 (6-14) Blood Urea Nitrogen 11 mg/dL (8-26) Creatinine 1.0 mg/dL (0.7-1.3) Estimated GFR (Cockcroft-Gault) 77.9 BUN/Creatinine Ratio 11 (6-20) Glucose Level 109 mg/dL (70-99) H Calcium Level 9.6 mg/dL (8.5-10.1) Total Bilirubin 0.6 mg/dL (0.2-1.0) Aspartate Amino Transferase (AST) 36 U/L (15-37) Alanine Aminotransferase (ALT) 31 U/L (16-63) Alkaline Phosphatase 98 U/L (46-116) Total Protein 8.0 g/dL (6.4-8.2) Albumin 3.1 g/dL (3.4-5.0) L Albumin/Globulin Ratio 0.6 (1.0-1.7) L Lipase 39 U/L (73-393) L Influenza Type A Antigen Negative (NEGATIVE) Influenza Type B Antigen Negative (NEGATIVE) SARS-CoV-2 Antigen (Rapid) Negative (NEGATIVE) Laboratory Tests 01/28/22 17:20 Laboratory Tests 01/28/22 17:20 Vital Signs: Vital Signs Date Time Temp Pulse Resp B/P (MAP) Pulse Ox O2 Delivery O2 Flow Rate FiO2 01/28/22 17:59 84 20 156/99 (118) 98 Room Air 01/28/22 16:20 98.0 98.0 EKG: EKG: [] Radiology/Procedures: Radiology/Procedures: [] Course & Med Decision Making: Course & Med Decision Making Pertinent Labs and Imaging studies reviewed. (See chart for details) 52-year-old male, vital signs reviewed, presents emergency department concerning for cyclic vomiting syndrome. After extensive chart review, patient has been seen several times with similar complaints. Will order CBC, CMP, lipase, rapid COVID and flu testing, saline lock, 1 L LR, Haldol, Dilaudid, Benadryl, Reglan IV for symptoms. Will reevaluate after period of time. Patient's labs are unremarkable, except for elevated white count of 16.6, this is suspicious of a stress response related to patient's reported cyclic vomiting syndrome. Upon reevaluation of the patient, patient states he feels much better now, would like to have an additional dose of pain medication and discharged home. Discussed with patient strict follow-up with primary care this week, return to ER precautions or concerns were reviewed, patient gave verbal understanding of and is amenable to ED discharge planning. Patient did not exhibit any vomiting during his ER stay. Discussed with the patient all findings and diagnostic testing as well as the need to follow-up with their primary care provider for further evaluation and treatment or return to the ED if any new or worsening symptoms. Strict return precautions were also discussed at length, the patient voiced understanding and agreement with the discharge planning. The patient was nontoxic in appearance, in no apparent distress, and hemodynamically stable at the time of disposition. Robert Disclaimer: Robert Disclaimer: This electronic medical record was generated, in whole or in part, using a voice recognition dictation system. Departure Departure Impression: Primary Impression: Nausea and vomiting Qualified Codes: R11.14 - Bilious vomiting Disposition: HOME / SELF CARE / HOMELESS Condition: GOOD Referrals: Caity NOE MD (PCP) Additional Instructions: You were seen here today for cyclic vomiting syndrome. You were given antinausea and pain medications along with fluids. Your nausea has seemed to resolve. Please continue all medications as prescribed by your primary care physician Dr. Noe. Thank you for visiting our Emergency Department. It was a pleasure taking care of you today in the emergency department and we appreciate you trusting us with your care. If any additional problems come up don't hesitate to return to visit us. Please follow up with your primary care provider so they can plan additional care if needed and know about the problem that you had. If symptoms worsen come back to the Emergency Department. Any concerning symptoms that start such as chest pain, shortness of air, weakness or numbness on one side of the body, running high fevers or any other concerning symptoms return to the ER. ABEL LOW APRN January 28, 2022 18:41
[2022-01-28 18:57] VITALS: BP 166/77
== END 2022-01-28 18:58 | disposition home or self-care (01) ==
LOC: ER 16:15
DX: R11.2 Nausea with vomiting, unspecified (principal); G43.909 Migraine, unspecified, not intractable, without status migrainosus; G89.29 Other chronic pain; F17.200 Nicotine dependence, unspecified, uncomplicated; Z20.822 Contact with and (suspected) exposure to COVID-19; Z88.6 Allergy status to analgesic agent
CPT/HCPCS: 36415; 80053; 83690; 85025; 87428; 96361; 96374; 96375; 96376; 99284; J1170; J1200; J1630; J2765; J7120